=== PATIENT | female | born 1955 | race African-American/Black ===

== ENCOUNTER 2017-11-06 19:28 | Emergency (ER) | payer MEDICAID ==
[~2017-11-06] VITALS: Ht 175.3 cm; Wt 146.8 kg
[~2017-11-06 19:28] MED LIST: ALBU6.7H INH; ASPI-1071 PO; BUPR1FIL3; FURO20TA4; GABA-532; LISI-600 PO; METO25TA6 PO; NIT10P TD; POTA10TA36 PO; RISP2TAB3 PO
[2017-11-06] MEDS ORDERED: diazepam 5mg tablet PO ONE (23:10)
[2017-11-06] MEDS ORDERED: ibuprofen tablet 400 MG TABLET PO ONE (23:10)
[2017-11-06] MEDS ORDERED: DIAZ5TAB PO (23:24)
[2017-11-06] MEDS ORDERED: IBUP-1985 PO (23:24)
[2017-11-06 23:48] VITALS: BP 167/89
== END 2017-11-06 23:49 | disposition home or self-care (01) ==
LOC: ER 19:29
DX: M54.5 Low back pain (principal); M62.830 Muscle spasm of back; R60.0 Localized edema; I25.2 Old myocardial infarction; J44.9 Chronic obstructive pulmonary disease, unspecified; G89.29 Other chronic pain; I11.0 Hypertensive heart disease with heart failure; I50.9 Heart failure, unspecified; M19.90 Unspecified osteoarthritis, unspecified site; F15.10 Other stimulant abuse, uncomplicated; G62.9 Polyneuropathy, unspecified; F11.10 Opioid abuse, uncomplicated; G43.909 Migraine, unspecified, not intractable, without status migrainosus; F12.10 Cannabis abuse, uncomplicated; Z88.1 Allergy status to other antibiotic agents; Z86.711 Personal history of pulmonary embolism; Z86.718 Personal history of other venous thrombosis and embolism; Z88.5 Allergy status to narcotic agent; Z88.8 Allergy status to other drugs, medicaments and biological substances; Z79.1 Long term (current) use of non-steroidal anti-inflammatories (NSAID); Z98.890 Other specified postprocedural states; Z79.82 Long term (current) use of aspirin
CPT/HCPCS: 99283

== ENCOUNTER 2018-01-28 02:23 | Emergency (ER) | payer MEDICAID ==
[~2018-01-28] VITALS: Ht 172.7 cm; Wt 152.3 kg
[~2018-01-28 02:23] MED LIST changes: +DIAZ5TAB PO; +IBUP-1985 PO
[2018-01-28] MEDS ORDERED: methylPREDNISolone sod succ 125mg/2ml vial IV ONE (02:50)
[2018-01-28] MEDS ORDERED: azithromycin/NS 500mg/250ml 250 ML IV ONE (02:50)
[2018-01-28] MEDS ORDERED: ipratropium/albuterol 3ml nebule NEB ONE (02:50)
[2018-01-28 03:12] LABS: BASOPHILS # (AUTO) 0.1 X10'3 (0-0.2); BASOPHILS % (AUTO) 1.2 % (0-1); EOSINOPHILS # (AUTO) 0.1 X10'3 (0-0.9); EOSINOPHILS % (AUTO) 1.3 % (0-6); HEMATOCRIT 40.6 % (35.0-45.0); HEMOGLOBIN 13.6 g/dl (12.0-16.0); LYMPHOCYTES # (AUTO) 2.1 X10'3 (1.1-4.8); LYMPHOCYTES % (AUTO) 35.1 % (21-51); MEAN CORPUSCULAR HEMOGLOBIN 28.9 PG (27.0-31.0); MEAN CORPUSCULAR HGB CONC 33.6 % (33.0-36.5); MEAN CORPUSCULAR VOLUME 86.1 FL (78-98); MEAN PLATELET VOLUME 8.9 FL (7.4-10.4); MONOCYTES # (AUTO) 0.5 X10'3 (0-0.9); MONOCYTES % (AUTO) 7.8 % (2-12); NEUTROPHILS # (AUTO) 3.2 X10'3 (1.8-7.7); NEUTROPHILS % (AUTO) 54.6 % (42-75); PLATELET COUNT 151 X10'3 (140-440); RED BLOOD COUNT 4.72 X10'6 (4.20-5.60); RED CELL DISTRIBUTION WIDTH 14.8 % (11.5-14.5); WHITE BLOOD COUNT 5.9 X10'3 (4.5-11.0)
[2018-01-28 03:21] LABS: INR 1.1 INR; PARTIAL THROMBOPLASTIN TIME 26 SECONDS (22-32); PROTHROMBIN TIME 11.3 SECONDS (9.0-12.0)
[2018-01-28] MEDS ORDERED: methylPREDNISolone sod succ 125mg/2ml vial IM ONE (03:30)
[2018-01-28] MEDS ORDERED: azithromycin 250mg tablet PO ONE (03:30)
[2018-01-28 03:33] LABS: ALANINE AMINOTRANSFERASE 48 U/L (12-78); ALBUMIN 3.1 G/DL (3.4-5.0); ALBUMIN/GLOBULIN RATIO 0.7 (1.1-1.5); ALKALINE PHOSPHATASE 95 IU/L (46-116); ANION GAP 5 (8-16); ASPARTATE AMINO TRANSFERASE 30 U/L (10-37); BILIRUBIN,TOTAL 0.5 MG/DL (0.1-1.0); BLOOD UREA NITROGEN 15 MG/DL (7-18); BUN/CREATININE RATIO 12.9 (6.6-38.0); CALCIUM 9.3 MG/DL (8.5-10.1); CHLORIDE 103 MMOL/L (99-107); CREATININE 1.16 MG/DL (0.40-0.90); GLUCOSE 121 MG/DL (70-104); POTASSIUM 3.9 MMOL/L (3.5-5.1); SODIUM 138 MMOL/L (135-145); TOTAL CARBON DIOXIDE 29.7 MMOL/L (24-32); TOTAL PROTEIN 7.7 G/DL (6.4-8.2); eGFR 57 ML/MIN
[2018-01-28] MEDS ORDERED: PRED20TA PO (04:17)
[2018-01-28 04:35] VITALS: BP 180/71
== END 2018-01-28 04:42 | disposition home or self-care (01) ==
LOC: ER 02:23
DX: J44.9 Chronic obstructive pulmonary disease, unspecified (principal); F15.10 Other stimulant abuse, uncomplicated; I11.0 Hypertensive heart disease with heart failure; I50.9 Heart failure, unspecified; E11.42 Type 2 diabetes mellitus with diabetic polyneuropathy; G43.909 Migraine, unspecified, not intractable, without status migrainosus; M19.90 Unspecified osteoarthritis, unspecified site; I25.2 Old myocardial infarction; F12.10 Cannabis abuse, uncomplicated; Z79.82 Long term (current) use of aspirin; Z88.6 Allergy status to analgesic agent; Z88.1 Allergy status to other antibiotic agents; Z88.0 Allergy status to penicillin; Z88.8 Allergy status to other drugs, medicaments and biological substances
CPT/HCPCS: 36415; 71045; 80053; 83880; 84484; 85025; 85610; 85730; 87040; 93005; 94640; 94760; 96372; 99285; J2930

== ENCOUNTER 2018-03-28 21:21 | Emergency (ER) | payer MEDICAID ==
[~2018-03-28] VITALS: Ht 172.7 cm; Wt 141.8 kg
[2018-03-28] MEDS ORDERED: dexamethasone sod phosphate 10mg/ml inj IV STA (21:48)
[2018-03-28] MEDS ORDERED: metoclopramide 5 mg/ml inj IV ONE (21:50)
[2018-03-28] MEDS ORDERED: normal saline 1000ML IV soln IVB ONE (21:50)
[2018-03-28] MEDS ORDERED: diphenhydrAMINE 50 mg/ml inj IV ONE (21:50)
[2018-03-28] MEDS ORDERED: ketorolac tromethamine 15mg/ml inj. IV ONE (21:50)
[2018-03-28] MEDS ORDERED: SUMA25TA35 PO (22:22)
[2018-03-28] MEDS ORDERED: PROC5TAB56 PO (22:22)
[2018-03-28 22:23] VITALS: BP 190/103
== END 2018-03-29 00:07 | disposition home or self-care (01) ==
LOC: ER 21:21
DX: G43.909 Migraine, unspecified, not intractable, without status migrainosus (principal); H53.149 Visual discomfort, unspecified; G62.9 Polyneuropathy, unspecified; I11.0 Hypertensive heart disease with heart failure; I50.9 Heart failure, unspecified; I25.2 Old myocardial infarction; J44.9 Chronic obstructive pulmonary disease, unspecified; M19.90 Unspecified osteoarthritis, unspecified site; G89.29 Other chronic pain; F12.10 Cannabis abuse, uncomplicated; F15.10 Other stimulant abuse, uncomplicated; F11.10 Opioid abuse, uncomplicated; Z86.718 Personal history of other venous thrombosis and embolism; Z86.14 Personal history of Methicillin resistant Staphylococcus aureus infection; Z98.890 Other specified postprocedural states; Z88.5 Allergy status to narcotic agent; Z88.0 Allergy status to penicillin; Z88.6 Allergy status to analgesic agent; Z86.711 Personal history of pulmonary embolism; Z79.82 Long term (current) use of aspirin; Z88.1 Allergy status to other antibiotic agents
CPT/HCPCS: 96374; 96375; 99284; J1100; J1200; J1885; J2765; J7030

== ENCOUNTER 2018-05-02 01:46 | Emergency (ER) | payer MEDICAID ==
[~2018-05-02 01:46] MED LIST changes: +PROC5TAB56 PO; +SUMA25TA35 PO
== END 2018-05-02 02:23 | disposition left against medical advice (07) ==
LOC: ER 01:47
DX: L08.9 Local infection of the skin and subcutaneous tissue, unspecified (principal); Z53.21 Procedure and treatment not carried out due to patient leaving prior to being seen by health care provider

== ENCOUNTER 2018-06-18 22:01 | Emergency (ER) | payer MEDICAID ==
[~2018-06-18] VITALS: Ht 172.7 cm; Wt 148.2 kg
[2018-06-18 22:08] VITALS: BP 206/120
[2018-06-18] MEDS ORDERED: erythromycin ophthalmic ointment 1gm tube RIGHTEYE ONE (22:40)
[2018-06-18] MEDS ORDERED: SULF1TAB49 PO (22:44)
[2018-06-18] MEDS ORDERED: ERYT1OIN6 RIGHTEYE (22:44)
[2018-06-18] MEDS ORDERED: VIG0.5OS RIGHTEYE (23:19)
== END 2018-06-18 23:26 | disposition home or self-care (01) ==
LOC: ER 22:03
DX: H10.31 Unspecified acute conjunctivitis, right eye (principal); L98.8 Other specified disorders of the skin and subcutaneous tissue; F12.90 Cannabis use, unspecified, uncomplicated; F15.90 Other stimulant use, unspecified, uncomplicated; F11.90 Opioid use, unspecified, uncomplicated; G43.909 Migraine, unspecified, not intractable, without status migrainosus; I11.0 Hypertensive heart disease with heart failure; I50.9 Heart failure, unspecified; I25.2 Old myocardial infarction; J44.9 Chronic obstructive pulmonary disease, unspecified; M19.90 Unspecified osteoarthritis, unspecified site; G62.9 Polyneuropathy, unspecified; G89.29 Other chronic pain; Z86.711 Personal history of pulmonary embolism; Z86.718 Personal history of other venous thrombosis and embolism; Z98.890 Other specified postprocedural states; Z88.5 Allergy status to narcotic agent; Z88.0 Allergy status to penicillin; Z88.1 Allergy status to other antibiotic agents; Z88.6 Allergy status to analgesic agent; Z79.82 Long term (current) use of aspirin; Z79.899 Other long term (current) drug therapy
CPT/HCPCS: 99283

== ENCOUNTER 2018-12-11 06:22 | Emergency (ER) | payer MEDICAID ==
[~2018-12-11] VITALS: Ht 172.7 cm; Wt 127.3 kg
[2018-12-11 07:48] LABS: BASOPHILS % (AUTO) 0.4 % (0-1); EOSINOPHILS % (AUTO) 0.6 % (0-6); HEMATOCRIT 44.1 % (35.0-45.0); HEMOGLOBIN 14.4 g/dl (12.0-16.0); LYMPHOCYTES # (AUTO) 1.4 X10'3 (1.1-4.8); LYMPHOCYTES % (AUTO) 19.2 % (21-51); MEAN CORPUSCULAR HEMOGLOBIN 29.3 PG (27.0-31.0); MEAN CORPUSCULAR HGB CONC 32.7 g/dL (33.0-36.5); MEAN CORPUSCULAR VOLUME 89.7 FL (78-98); MEAN PLATELET VOLUME 9.4 FL (7.4-10.4); MONOCYTES # (AUTO) 0.5 X10'3 (0-0.9); MONOCYTES % (AUTO) 6.8 % (2-12); NEUTROPHILS # (AUTO) 5.5 X10'3 (1.8-7.7); PLATELET COUNT 159 X10'3 (140-440); RED BLOOD COUNT 4.91 X10'6 (4.20-5.60); RED CELL DISTRIBUTION WIDTH 14.6 % (11.5-14.5); WHITE BLOOD COUNT 7.5 X10'3 (4.5-11.0)
[2018-12-11 08:20] LABS: ALANINE AMINOTRANSFERASE 29 U/L (12-78); ALBUMIN 3.1 G/DL (3.4-5.0); ALBUMIN/GLOBULIN RATIO 0.6 (1.1-1.5); ALKALINE PHOSPHATASE 120 IU/L (46-116); ANION GAP 13 (8-16); ASPARTATE AMINO TRANSFERASE 30 U/L (10-37); BILIRUBIN,TOTAL 0.5 MG/DL (0.1-1.0); BLOOD UREA NITROGEN 22 MG/DL (7-18); BUN/CREATININE RATIO 19.3 (6.6-38.0); CALCIUM 9.1 MG/DL (8.5-10.1); CHLORIDE 101 MMOL/L (99-107); CREATININE 1.14 MG/DL (0.40-0.90); GLUCOSE 138 MG/DL (70-104); POTASSIUM 3.4 MMOL/L (3.5-5.1); SODIUM 140 MMOL/L (135-145); TOTAL CARBON DIOXIDE 25.7 MMOL/L (24-32); TOTAL PROTEIN 8.4 G/DL (6.4-8.2); eGFR 58 ML/MIN
[2018-12-11 08:25] LABS: INR 1.1 INR; PROTHROMBIN TIME 11.1 SECONDS (9.0-12.0)
[2018-12-11] MEDS ORDERED: morphine 2 MG/ML inj. syringe IV ONE (08:40)
[2018-12-11] MEDS ORDERED: normal saline 1000ml 1,000 ML IV ONE (08:40)
[2018-12-11] MEDS ORDERED: ondansetron/PF 4mg/2ml inj IV ONE (08:40)
[2018-12-11 09:08] LABS: URINE HCG NEGATIVE (NEG)
[2018-12-11 09:11] LABS: CLARITY,URINE CLEAR (Clear); GLUCOSE, URINE NEGATIVE (Neg); KETONES,URINE NEGATIVE (Neg); LEUKOCYTE ESTERASE ,URINE NEGATIVE (Neg); NITRITES, URINE NEGATIVE (Neg); OCCULT BLOOD,URINE TRACE-LYSED (Neg); PH,URINE 7.5 (4.8-8.0); PROTEIN,URINE 30 mg/dl (Neg); UROBILINOGEN,URINE 0.2 E.U/dL (0.2-1.0)
[2018-12-11 09:13] LABS: COLOR,URINE STRAW (Yellow)
[2018-12-11 09:15] LABS: UA COLLECTION TYPE STRAIGHT CATH
[2018-12-11 09:20] LABS: SQUAMOUS EPITHELIAL CELL,UR NONE SEEN /LPF (FEW)
[2018-12-11 09:22] LABS: RENAL CELLS, URINE FEW /HPF; TRANSITIONAL EPI CELLS,URINE FEW /HPF
[2018-12-11 09:24] LABS: BACTERIA,URINE FEW /HPF (Neg); RBC,URINE 0-2 /HPF (0-2); WBC,URINE 0-4 /HPF (0-4)
[2018-12-11] MEDS ORDERED: morphine 2 MG/ML inj. syringe IM ONE (10:05)
[2018-12-11] MEDS ORDERED: ondansetron 4mg rapidly disintigrating tab PO ONE (10:05)
[2018-12-11] MEDS ORDERED: IBUP-1984 PO (10:12)
[2018-12-11] MEDS ORDERED: ACET-812 PO (10:12)
[2018-12-11] MEDS ORDERED: ONDA4TAB6 PO (10:12)
[2018-12-11 10:20] VITALS: BP 163/100
[2018-12-12] MEDS ORDERED: BISA-155 PO (03:36)
== END 2018-12-11 11:11 | disposition home or self-care (01) ==
LOC: ER 06:23
DX: R31.9 Hematuria, unspecified (principal); R10.31 Right lower quadrant pain; R11.0 Nausea; I50.9 Heart failure, unspecified; I11.0 Hypertensive heart disease with heart failure; I25.2 Old myocardial infarction; J44.9 Chronic obstructive pulmonary disease, unspecified; M19.90 Unspecified osteoarthritis, unspecified site; G89.29 Other chronic pain; F12.90 Cannabis use, unspecified, uncomplicated; F15.90 Other stimulant use, unspecified, uncomplicated; F11.90 Opioid use, unspecified, uncomplicated; F19.90 Other psychoactive substance use, unspecified, uncomplicated; Z86.718 Personal history of other venous thrombosis and embolism; Z86.14 Personal history of Methicillin resistant Staphylococcus aureus infection; Z98.890 Other specified postprocedural states; Z88.5 Allergy status to narcotic agent; Z88.0 Allergy status to penicillin; Z88.2 Allergy status to sulfonamides; Z88.1 Allergy status to other antibiotic agents; Z79.82 Long term (current) use of aspirin; Z79.899 Other long term (current) drug therapy
CPT/HCPCS: 36415; 74176; 80053; 81001; 81025; 85025; 85610; 96372; 99284; J2270; J2405

== ENCOUNTER 2018-12-12 00:34 | Emergency (ER) | payer MEDICAID ==
[~2018-12-12] VITALS: Ht 172.7 cm; Wt 104.4 kg
[~2018-12-12 00:34] MED LIST changes: +ACET-812 PO; +IBUP-1984 PO; +ONDA4TAB6 PO
[2018-12-12] MEDS ORDERED: aspirin 325mg tablet PO ONE (02:45)
[2018-12-12] MEDS ORDERED: ondansetron 4mg rapidly disintigrating tab PO ONE (02:45)
[2018-12-12 03:00] LABS: BASOPHILS % (AUTO) 0.2 % (0-1); EOSINOPHILS # (AUTO) 0.1 X10'3 (0-0.9); EOSINOPHILS % (AUTO) 1.4 % (0-6); HEMATOCRIT 44.1 % (35.0-45.0); HEMOGLOBIN 14.3 g/dl (12.0-16.0); LYMPHOCYTES % (AUTO) 38.8 % (21-51); MEAN CORPUSCULAR HEMOGLOBIN 29.2 PG (27.0-31.0); MEAN CORPUSCULAR HGB CONC 32.4 g/dL (33.0-36.5); MEAN CORPUSCULAR VOLUME 90.1 FL (78-98); MEAN PLATELET VOLUME 9.4 FL (7.4-10.4); MONOCYTES # (AUTO) 0.7 X10'3 (0-0.9); MONOCYTES % (AUTO) 8.3 % (2-12); NEUTROPHILS % (AUTO) 51.3 % (42-75); PLATELET COUNT 161 X10'3 (140-440); RED BLOOD COUNT 4.89 X10'6 (4.20-5.60); RED CELL DISTRIBUTION WIDTH 14.9 % (11.5-14.5); WHITE BLOOD COUNT 7.8 X10'3 (4.5-11.0)
[2018-12-12 03:03] VITALS: BP 122/62
[2018-12-12 03:08] LABS: ALANINE AMINOTRANSFERASE 29 U/L (12-78); ALBUMIN 3.1 G/DL (3.4-5.0); ALBUMIN/GLOBULIN RATIO 0.6 (1.1-1.5); ALKALINE PHOSPHATASE 109 IU/L (46-116); ANION GAP 10 (8-16); ASPARTATE AMINO TRANSFERASE 32 U/L (10-37); BILIRUBIN,TOTAL 0.5 MG/DL (0.1-1.0); BLOOD UREA NITROGEN 22 MG/DL (7-18); BUN/CREATININE RATIO 14.2 (6.6-38.0); CHLORIDE 101 MMOL/L (99-107); CREATININE 1.55 MG/DL (0.40-0.90); GLUCOSE 128 MG/DL (70-104); POTASSIUM 3.9 MMOL/L (3.5-5.1); SODIUM 139 MMOL/L (135-145); TOTAL CARBON DIOXIDE 27.6 MMOL/L (24-32); TOTAL PROTEIN 8.5 G/DL (6.4-8.2); eGFR 41 ML/MIN
[2018-12-12 03:11] LABS: LIPASE 87 U/L (73-393); TROPONIN I 0.06 NG/ML (0.0-0.05)
[2018-12-12] MEDS ORDERED: BISA-155 PO (03:36)
== END 2018-12-12 03:39 | disposition home or self-care (01) ==
LOC: ER 00:35
DX: R10.84 Generalized abdominal pain (principal); R11.0 Nausea; K59.00 Constipation, unspecified; G43.909 Migraine, unspecified, not intractable, without status migrainosus; I11.0 Hypertensive heart disease with heart failure; I50.9 Heart failure, unspecified; I25.2 Old myocardial infarction; Z86.718 Personal history of other venous thrombosis and embolism; J44.9 Chronic obstructive pulmonary disease, unspecified; M19.90 Unspecified osteoarthritis, unspecified site; G89.29 Other chronic pain; Z86.14 Personal history of Methicillin resistant Staphylococcus aureus infection; F12.90 Cannabis use, unspecified, uncomplicated; F15.90 Other stimulant use, unspecified, uncomplicated; F11.90 Opioid use, unspecified, uncomplicated; Z98.890 Other specified postprocedural states; Z88.5 Allergy status to narcotic agent; Z88.0 Allergy status to penicillin; Z88.6 Allergy status to analgesic agent; Z88.2 Allergy status to sulfonamides; Z79.82 Long term (current) use of aspirin; Z79.899 Other long term (current) drug therapy
CPT/HCPCS: 36415; 80053; 83690; 84484; 85025; 93005; 99284

== ENCOUNTER 2019-03-22 13:58 | Inpatient (IN) | payer MEDICAID ==
[~2019-03-22] VITALS: Ht 172.7 cm; Wt 131.8 kg
[~2019-03-22 13:58] MED LIST changes: -ACET-812 PO; +BISA-155 PO; -IBUP-1984 PO
[2019-03-22] MEDS ORDERED: CefTRIAXone 2gm/D5W 50ml 50 ML IV ONE (14:10)
[2019-03-22] MEDS ORDERED: ipratropium/albuterol 3ml nebule NEB ONE (14:10)
--- NOTE | 2019-03-22 14:38 | NUR ---
PT COMPLETED EMT RT AND NOTED TO DROP LOW 79 ON RA, PLACED ON 4 LPM PER N/C AND UP TO 91-93, RT AT BEDSIDE AND TREATMENT IN PROGRESS.
[2019-03-22 14:43] LABS: ALANINE AMINOTRANSFERASE 27 U/L (12-78); ALBUMIN 2.3 G/DL (3.4-5.0); ALBUMIN/GLOBULIN RATIO 0.4 (1.1-1.5); ALKALINE PHOSPHATASE 133 IU/L (46-116); ANION GAP 7 (8-16); ASPARTATE AMINO TRANSFERASE 47 U/L (10-37); BASOPHILS % (AUTO) 0.2 % (0-1); BILIRUBIN,TOTAL 0.9 MG/DL (0.1-1.0); BLOOD UREA NITROGEN 32 MG/DL (7-18); CHLORIDE 100 MMOL/L (99-107); CREATININE 2.29 MG/DL (0.40-0.90); EOSINOPHILS % (AUTO) 0.1 % (0-6); GLUCOSE 129 MG/DL (70-104); HEMATOCRIT 41.3 % (35.0-45.0); HEMOGLOBIN 13.3 g/dl (12.0-16.0); LYMPHOCYTES # (AUTO) 1.2 X10'3 (1.1-4.8); LYMPHOCYTES % (AUTO) 8.5 % (21-51); MEAN CORPUSCULAR HEMOGLOBIN 28.6 PG (27.0-31.0); MEAN CORPUSCULAR HGB CONC 32.1 g/dL (33.0-36.5); MONOCYTES # (AUTO) 1.2 X10'3 (0-0.9); MONOCYTES % (AUTO) 8.5 % (2-12); NEUTROPHILS % (AUTO) 82.7 % (42-75); PLATELET COUNT 192 X10'3 (140-440); POTASSIUM 4.1 MMOL/L (3.5-5.1); RED BLOOD COUNT 4.64 X10'6 (4.20-5.60); RED CELL DISTRIBUTION WIDTH 14.2 % (11.5-14.5); SODIUM 134 MMOL/L (135-145); TOTAL CARBON DIOXIDE 27.3 MMOL/L (24-32); TOTAL PROTEIN 7.7 G/DL (6.4-8.2); WHITE BLOOD COUNT 14.5 X10'3 (4.5-11.0); eGFR 26 ML/MIN
[2019-03-22 14:47] LABS: PARTIAL THROMBOPLASTIN TIME 30 SECONDS (22-32)
[2019-03-22] MEDS ORDERED: aspirin 325mg tablet PO ONE (15:25)
[2019-03-22] MEDS ORDERED: normal saline 1000ML IV soln IVB ONE (15:35)
[2019-03-22] MEDS ORDERED: azithromycin/NS 500mg/250ml 250 ML IV ONE (15:35)
[2019-03-22] MEDS ORDERED: furosemide 10 MG/1 ML 10ml inj IV ONE (15:35)
[2019-03-22 15:56] LABS: ABG BASE EXCESS -3.5 mmol/L (-2.0-3.0); ABG HCO3 23.9 mmol/L (22.0-26.0); ABG OXYGEN SATURATION 89.1 % (95-98); ABG PCO2 (T) 52.3 mmHg (32.0-45.0); ABG PH (T) 7.277 (7.350-7.450); ABG PO2 (T) 62.6 mmHg (83-108); ALLEN'S TEST Positive; FCOHb 1.8 % (0.5-1.5); FLOW 3 L/min; FMetHb 0.2 % (0.3-1.12); FO2Hb 87.3 % (94-100); RESPIRATORY RATE 18 b/min; TOTAL HEMOGLOBIN 14.6 G/dl (12.0-16.0)
[2019-03-22 16:08] LABS: CLARITY,URINE SLIGHTLY CLOUDY (Clear); GLUCOSE, URINE NEGATIVE (Neg); KETONES,URINE TRACE mg/dl (Neg); LEUKOCYTE ESTERASE ,URINE NEGATIVE (Neg); NITRITES, URINE POSITIVE (Neg); OCCULT BLOOD,URINE MODERATE (Neg); PH,URINE 5.5 (4.8-8.0); PROTEIN,URINE >=300 mg/dl (Neg); UROBILINOGEN,URINE >=8.0 E.U/dL (0.2-1.0)
[2019-03-22 16:14] LABS: URINE HCG NEGATIVE (NEG)
[2019-03-22 16:16] LABS: UA COLLECTION TYPE FOLEY CATH
[2019-03-22 16:17] LABS: COLOR,URINE DARK YELLOW (Yellow)
[2019-03-22 16:20] LABS: BACTERIA,URINE 1+ /HPF (Neg); RBC,URINE 0-2 /HPF (0-2)
[2019-03-22 16:21] LABS: FINE GRANULAR CAST 0-3 /LPF (NEGATIVE); SQUAMOUS EPITHELIAL CELL,UR FEW /LPF (FEW); URINE AMPHETAMINE SCREEN POSITIVE (Neg); URINE BARBITUATE SCREEN NEGATIVE (Neg); URINE BENZODIAZEPINES SCREEN NEGATIVE (Neg); URINE CANNABINOID SCREEN NEGATIVE (Neg); URINE COCAINE SCREEN NEGATIVE (Neg); URINE METHADONE SCREEN NEGATIVE (Neg); URINE OPIATE SCREEN POSITIVE (Neg); URINE PHENCYCLIDINE SCREEN NEGATIVE (Neg)
[2019-03-22 16:22] LABS: CELLULAR CAST 0-4 /LPF (NEGATIVE); WAXY CASTS,URINE 0-3 /LPF (NEGATIVE)
[2019-03-22] MEDS ORDERED: GABA-532 PO (16:33)
[2019-03-22] MEDS ORDERED: BUPR1FIL3 SL (16:33)
[2019-03-22] MEDS ORDERED: TRIA454O TOP (16:34)
[2019-03-22] MEDS ORDERED: LISI-600 PO (16:34)
[2019-03-22] MEDS ORDERED: magnesium 4gm in 100ml NS 100 ML IV PRN (16:35)
[2019-03-22] MEDS ORDERED: acetaminophen 325mg tablet PO PRN (16:35)
[2019-03-22] MEDS ORDERED: morphine 2 MG/ML inj. syringe IV PRN ×2 (16:35)
[2019-03-22] MEDS ORDERED: mag hydrox/Alum hydrox/simeth 30ml oral suspension PO PRN (16:35)
[2019-03-22] MEDS ORDERED: potassium Cl 20 mEq SR tablet PO PRN ×2 (16:35)
[2019-03-22] MEDS ORDERED: potassium CL 10mEq/100ml bag 100 ML IV PRN (16:35)
[2019-03-22] MEDS ORDERED: vancomycin/NS 1 GM ADD-VANTAGE 250 ML IV SCH (16:35)
[2019-03-22] MEDS ORDERED: bisacodyl 10mg suppository rectal RC PRN (16:35)
[2019-03-22] MEDS ORDERED: magnesium hydroxide 30ml (MOM) UD suspension PO PRN (16:35)
[2019-03-22] MEDS ORDERED: ondansetron/PF 4mg/2ml inj IV PRN (16:35)
[2019-03-22] MEDS ORDERED: magnesium Cl slow-release 64mg tablet PO PRN (16:35)
[2019-03-22] MEDS ORDERED: RISP4TAB7 PO (16:35)
[2019-03-22] MEDS ORDERED: magnesium 2GM in 50ml NS 50 ML IV PRN (16:35)
[2019-03-22] MEDS ORDERED: potassium Cl 40MEQ/NS 500ml 500 ML IV PRN (16:35)
[2019-03-22] MEDS ORDERED: ESCI20TA PO (16:36)
[2019-03-22] MEDS ORDERED: APIX5TAB3 PO (16:40)
[2019-03-22] MEDS: furosemide 20 MG/2 ML vial IV SCH ×2 (16:45→23:21)
[2019-03-22] MEDS ORDERED: nitroGLYCERIN 0.4mg SUBLingual tab SL PRN (16:45)
[2019-03-22] MEDS: aspirin 81mg tablet.DR PO SCH (16:45)
--- NOTE | 2019-03-22 17:07 | NUR ---
DR. BELL ORDERED BIPAP THEN FOLLOWED BY ABG 2 HOURS AFTER INITIATION OF BIPAP
[2019-03-22] MEDS: pantoprazole 40 MG vial IV SCH (17:23)
[2019-03-22] MEDS: methylPREDNISolone sod succ 125mg/2ml vial IV SCH ×2 (17:23→21:14)
--- NOTE | 2019-03-22 18:37 | NUR ---
Rec'd report from GAETANO Whelan in the ER. The patient will be coming up on Bipap.
[2019-03-22 19:05] LABS: ABG BASE EXCESS -4.8 mmol/L (-2.0-3.0); ABG HCO3 22.8 mmol/L (22.0-26.0); ABG OXYGEN SATURATION 97.2 % (95-98); ABG PCO2 (T) 54.2 mmHg (32.0-45.0); ABG PH (T) 7.247 (7.350-7.450); ABG PO2 (T) 108.9 mmHg (83-108); ALLEN'S TEST Positive; FCOHb 1.3 % (0.5-1.5); FMetHb 0.2 % (0.3-1.12); FO2Hb 95.7 % (94-100); PATIENT TEMPERATURE 37.8; TOTAL HEMOGLOBIN 14.4 G/dl (12.0-16.0)
--- NOTE | 2019-03-22 19:15 | NUR ---
Patient arrived from ER on a gurney and was transferred to hospital bed w/o issue using a slide board. She is extremely SOB and will continue on Bipap, I will continue to monitor.
[2019-03-22] MEDS: ipratropium/albuterol 3ml nebule NEB SCH ×2 (19:17→22:52)
[2019-03-22 19:30] VITALS: BP 161/103
[2019-03-22] MEDS: NORMAL SALINE IV SCH (19:46)
[2019-03-22] MEDS: VANCOMYCIN IV SCH (19:46)
[2019-03-22] MEDS ORDERED: metoprolol tartrate 12.5mg (1/2 tablet) PO SCH (20:00)
[2019-03-22] MEDS ORDERED: heparin, porcine 5000 units/ml vial SQ SCH (20:00)
[2019-03-22] MEDS ORDERED: RISPERIDONE PO SCH (20:00)
--- NOTE | 2019-03-22 20:19 | NUR ---
Patient refused blood draw and was screaming at the community service worker that she wanted water. She also ripped her hand away when another nurse tried to put blood pressure cuff back on. I advised the staff I would talk to her about her behavior.
[2019-03-22] MEDS ORDERED: non-formulary drug (Buprenorphine Hcl/Naloxone Hcl (Suboxone 8 Mg-2 Mg Sl Film) 1 STRIP) SL SCH (21:00)
[2019-03-22] MEDS: buprenorphine/naloxone 8MG-2MG SUBlingual film SL SCH (21:12)
[2019-03-22] MEDS: gabapentin 300mg capsule PO SCH (21:13)
[2019-03-22] MEDS: risperiDONE 2mg tablet PO SCH (21:13)
[2019-03-22] MEDS: apixaban 5mg tablet PO SCH (21:13)
[2019-03-22] MEDS: docusate sod 100mg capsule PO SCH (21:13)
[2019-03-22 22:00] VITALS: BP 167/86
[2019-03-23 02:00] VITALS: BP 145/75
[2019-03-23] MEDS: methylPREDNISolone sod succ 125mg/2ml vial IV SCH ×3 (02:26→13:37)
[2019-03-23] MEDS: ipratropium/albuterol 3ml nebule NEB SCH ×6 (02:38→23:25)
[2019-03-23 06:00] VITALS: BP 124/68
[2019-03-23 06:03] LABS: HEMOGLOBIN 12.8 g/dl (12.0-16.0); MEAN PLATELET VOLUME 8.9 FL (7.4-10.4)
[2019-03-23 06:06] LABS: HEMATOCRIT 40.1 % (35.0-45.0); MEAN CORPUSCULAR HEMOGLOBIN 28.5 PG (27.0-31.0); MEAN CORPUSCULAR HGB CONC 32.1 g/dL (33.0-36.5); PLATELET COUNT 167 X10'3 (140-440); RED CELL DISTRIBUTION WIDTH 13.8 % (11.5-14.5); WHITE BLOOD COUNT 15.7 X10'3 (4.5-11.0)
--- NOTE | 2019-03-23 06:15 | NUR ---
Problems reprioritized. Patient report given, questions answered & plan of care reviewed with GAETANO Chavez.
--- NOTE | 2019-03-23 06:15 | NUR ---
Patient in room PCU 3022. I have received report from Luanne SALTER and had the opportunity to ask questions and assume patient care.
[2019-03-23 06:42] LABS: ALANINE AMINOTRANSFERASE 21 U/L (12-78); ALBUMIN 1.8 G/DL (3.4-5.0); ALBUMIN/GLOBULIN RATIO 0.3 (1.1-1.5); ALKALINE PHOSPHATASE 117 IU/L (46-116); ANION GAP 12 (8-16); ASPARTATE AMINO TRANSFERASE 40 U/L (10-37); BILIRUBIN,TOTAL 0.7 MG/DL (0.1-1.0); BLOOD UREA NITROGEN 34 MG/DL (7-18); BUN/CREATININE RATIO 18.8 (6.6-38.0); CALCIUM 8.4 MG/DL (8.5-10.1); CHLORIDE 103 MMOL/L (99-107); CHOL/HDL RATIO 5.5 (0.00-4.99); CHOLESTEROL 133 MG/DL (0-200); CREATININE 1.81 MG/DL (0.40-0.90); GLUCOSE 150 MG/DL (70-104); HDL CHOLESTEROL 24 MG/DL (35-60); LDL CHOLESTEROL 75 MG/DL (50-100); MAGNESIUM 1.8 MG/DL (1.5-2.4); POTASSIUM 3.9 MMOL/L (3.5-5.1); SODIUM 135 MMOL/L (135-145); TOTAL CARBON DIOXIDE 20.1 MMOL/L (24-32); TRIGLYCERIDES 100 MG/DL (20-135); TROPONIN I 0.15 NG/ML (0.0-0.05); eGFR 34 ML/MIN
[2019-03-23] MEDS: VANCOMYCIN IV SCH (07:16)
[2019-03-23] MEDS: NORMAL SALINE IV SCH (07:16)
[2019-03-23 07:21] LABS: PLATELET ESTIMATE NORMAL; TOTAL CELLS COUNTED 100
[2019-03-23 07:22] LABS: LARGE PLATELETS FEW
[2019-03-23] MEDS: K and/or MAG REPLACEMENT MC SCH (08:00)
[2019-03-23] MEDS: gabapentin 300mg capsule PO SCH ×3 (08:00→20:47)
[2019-03-23] MEDS: risperiDONE 2mg tablet PO SCH ×2 (08:00→20:47)
[2019-03-23] MEDS: citalopram 20mg tablet PO SCH (08:00)
[2019-03-23] MEDS: buprenorphine/naloxone 8MG-2MG SUBlingual film SL SCH ×3 (08:00→20:48)
[2019-03-23] MEDS: nicotine 7mg patch - 24hr TD SCH ×2 (08:00→14:15)
[2019-03-23] MEDS: docusate sod 100mg capsule PO SCH ×2 (08:00→20:00)
[2019-03-23] MEDS: aspirin 81mg tablet.DR PO SCH (08:00)
[2019-03-23] MEDS ORDERED: escitalopram 20mg tablet PO SCH (08:00)
[2019-03-23] MEDS: apixaban 5mg tablet PO SCH ×2 (08:00→20:47)
[2019-03-23] MEDS: pantoprazole 40 MG vial IV SCH (08:46)
[2019-03-23] MEDS: furosemide 20 MG/2 ML vial IV SCH ×2 (08:47→17:09)
[2019-03-23] MEDS: CefTRIAXone/D5W-Rocephin 1gm 50 ML IV SCH (08:52)
--- NOTE | 2019-03-23 09:20 | NUR ---
Pt unable to take Morning PO meds. DR. Kramer aware. IV metoprolol 2.5mg q4hrs prescribed for BP.
[2019-03-23 09:31] LABS: ABG BASE EXCESS -1.1 mmol/L (-2.0-3.0); ABG HCO3 25.4 mmol/L (22.0-26.0); ABG OXYGEN SATURATION 92.9 % (95-98); ABG PCO2 (T) 49.4 mmHg (32.0-45.0); ABG PH (T) 7.329 (7.350-7.450); ABG PO2 (T) 71.9 mmHg (83-108); ALLEN'S TEST Positive; FCOHb 0.4 % (0.5-1.5); FLOW 3 L/min; FMetHb 0.1 % (0.3-1.12); FO2Hb 92.4 % (94-100); TOTAL HEMOGLOBIN 13.5 G/dl (12.0-16.0)
[2019-03-23] MEDS: metoprolol tartrate 1mg/ml inj IV SCH ×3 (12:06→20:47)
[2019-03-23 15:15] VITALS: BP 131/61
--- NOTE | 2019-03-23 15:36 | NUR ---
PAGER ID: [phone] MESSAGE: RE: Jos Austin, room: 3022. Pt back on Bipap. reorder ABG? -Scott [facility] #[id number] Dr. Kramer paged about Pt going back on bipap
--- NOTE | 2019-03-23 17:49 | NUR ---
PAGER ID: [phone] MESSAGE: RE: Jos Austin. Room: 3022. Checked Pts blood sugar at 1500: 183 and again at 1700: 154. No history of Diabetes. Do you want an A1C drawn? -Scott Padma Kramer paged aoncerning Pts blood sugars with no history of Diabetes.
--- NOTE | 2019-03-23 18:05 | NUR ---
Problems reprioritized. Patient report given, questions answered & plan of care reviewed with Marya SALTER.
[2019-03-23 19:00] VITALS: BP 145/70
[2019-03-23] MEDS: lactobacillus rhamnosus 10,000 MMU CELLS/CAPSULE PO SCH (20:47)
--- NOTE | 2019-03-23 21:22 | NUR ---
Patient in room PCU 3022. I have received report from Marya SALTER and had the opportunity to ask questions and assume patient care.
[2019-03-23 21:48] VITALS: BP 145/70
[2019-03-23 23:00] VITALS: BP 138/59
[2019-03-24] MEDS: metoprolol tartrate 1mg/ml inj IV SCH ×6 (00:43→20:48)
[2019-03-24] MEDS: furosemide 20 MG/2 ML vial IV SCH ×3 (00:43→16:45)
[2019-03-24] MEDS: methylPREDNISolone sod succ 125mg/2ml vial IV SCH ×3 (00:44→16:45)
[2019-03-24 03:00] VITALS: BP 151/78
[2019-03-24] MEDS: ipratropium/albuterol 3ml nebule NEB SCH ×6 (03:08→23:28)
--- NOTE | 2019-03-24 05:13 | NUR ---
Butts catheter removed
[2019-03-24 06:00] VITALS: BP 155/76
[2019-03-24 06:02] LABS: BASOPHILS % (AUTO) 0.1 % (0-1); EOSINOPHILS % (AUTO) 0 % (0-6); HEMATOCRIT 38.4 % (35.0-45.0); HEMOGLOBIN 12.7 g/dl (12.0-16.0); LYMPHOCYTES # (AUTO) 0.8 X10'3 (1.1-4.8); LYMPHOCYTES % (AUTO) 4.4 % (21-51); MEAN CORPUSCULAR VOLUME 87.8 FL (78-98); MEAN PLATELET VOLUME 9.1 FL (7.4-10.4); MONOCYTES # (AUTO) 0.7 X10'3 (0-0.9); MONOCYTES % (AUTO) 4.1 % (2-12); NEUTROPHILS # (AUTO) 16.8 X10'3 (1.8-7.7); NEUTROPHILS % (AUTO) 91.4 % (42-75); PLATELET COUNT 163 X10'3 (140-440); RED BLOOD COUNT 4.37 X10'6 (4.20-5.60); RED CELL DISTRIBUTION WIDTH 14.2 % (11.5-14.5); WHITE BLOOD COUNT 18.4 X10'3 (4.5-11.0)
[2019-03-24 07:13] LABS: ALANINE AMINOTRANSFERASE 20 U/L (12-78); ALBUMIN 1.7 G/DL (3.4-5.0); ALBUMIN/GLOBULIN RATIO 0.3 (1.1-1.5); ALKALINE PHOSPHATASE 119 IU/L (46-116); ANION GAP 8 (8-16); ASPARTATE AMINO TRANSFERASE 32 U/L (10-37); BILIRUBIN,TOTAL 0.4 MG/DL (0.1-1.0); BLOOD UREA NITROGEN 36 MG/DL (7-18); BUN/CREATININE RATIO 21.4 (6.6-38.0); CALCIUM 8.9 MG/DL (8.5-10.1); CHLORIDE 103 MMOL/L (99-107); CREATININE 1.68 MG/DL (0.40-0.90); GLUCOSE 165 MG/DL (70-104); MAGNESIUM 1.8 MG/DL (1.5-2.4); POTASSIUM 3.5 MMOL/L (3.5-5.1); SODIUM 136 MMOL/L (135-145); TOTAL CARBON DIOXIDE 25.4 MMOL/L (24-32); TOTAL PROTEIN 6.9 G/DL (6.4-8.2); eGFR 37 ML/MIN
[2019-03-24] MEDS: VANCOMYCIN IV SCH (07:50)
[2019-03-24] MEDS: NORMAL SALINE IV SCH (07:50)
[2019-03-24] MEDS: apixaban 5mg tablet PO SCH ×2 (07:51→20:46)
[2019-03-24] MEDS: CefTRIAXone/D5W-Rocephin 1gm 50 ML IV SCH (07:51)
[2019-03-24] MEDS: pantoprazole 40 MG vial IV SCH (07:51)
[2019-03-24] MEDS: citalopram 20mg tablet PO SCH (07:52)
[2019-03-24] MEDS: gabapentin 300mg capsule PO SCH ×2 (07:52→20:46)
[2019-03-24] MEDS: lactobacillus rhamnosus 10,000 MMU CELLS/CAPSULE PO SCH ×2 (07:52→20:48)
[2019-03-24] MEDS: aspirin 81mg tablet.DR PO SCH (07:53)
[2019-03-24] MEDS: risperiDONE 2mg tablet PO SCH ×2 (07:53→20:47)
[2019-03-24] MEDS: docusate sod 100mg capsule PO SCH ×2 (07:53→20:00)
[2019-03-24] MEDS: buprenorphine/naloxone 8MG-2MG SUBlingual film SL SCH ×3 (07:54→20:48)
[2019-03-24 07:59] LABS: HEMOGLOBIN A1C 6.6 % (4.5-6.2)
[2019-03-24] MEDS: nicotine 7mg patch - 24hr TD SCH (08:00)
[2019-03-24] MEDS: K and/or MAG REPLACEMENT MC SCH (08:00)
[2019-03-24 10:54] LABS: PLATELET ESTIMATE NORMAL; TOTAL CELLS COUNTED 100
[2019-03-24 11:00] VITALS: BP 138/49
--- NOTE | 2019-03-24 13:48 | NUR ---
1300 Suboxone held due to pt being unable to arouse enough to take medication.
[2019-03-24 15:15] VITALS: BP 174/84
[2019-03-24 18:00] VITALS: BP 160/61
--- NOTE | 2019-03-24 18:14 | NUR ---
Problems reprioritized. Patient report given, questions answered & plan of care reviewed with Meli SALTER.
--- NOTE | 2019-03-24 18:18 | NUR ---
Patient in room PCU 3022. I have received report from Farrukh SALTER and had the opportunity to ask questions and assume patient care. pt is eating dinner, SL. O2 @2L
[2019-03-24] MEDS: HYDROcodone/acetaminophen 5mg/325mg tablet PO PRN (21:07)
[2019-03-24 23:00] VITALS: BP 166/96
[2019-03-25] VITALS (10 sets, daily range): BP systolic 154–194; BP diastolic 59–95
[2019-03-25] MEDS: methylPREDNISolone sod succ 125mg/2ml vial IV SCH ×2 (00:17→08:25)
[2019-03-25] MEDS: furosemide 20 MG/2 ML vial IV SCH ×4 (00:18→23:36)
[2019-03-25] MEDS: metoprolol tartrate 1mg/ml inj IV SCH ×4 (00:19→11:39)
--- NOTE | 2019-03-25 00:49 | NUR ---
pt refused to wear bipap, only want to wear nasal canula, O2 at 91%, 2L
--- NOTE | 2019-03-25 02:18 | NUR ---
[phone] MESSAGE: pt rick Austinl 3022, pt admitted with SOB, pneumonia, COPD, ALOC, pt is not very responsive and hard to arouse. pt refused to wear cpap at night. Do you want to do an ABG on pt. Thanks, Meli RN [phone]!
[2019-03-25 02:51] LABS: ABG BASE EXCESS 3.6 mmol/L (-2.0-3.0); ABG HCO3 29.5 mmol/L (22.0-26.0); ABG OXYGEN SATURATION 94.9 % (95-98); ABG PCO2 (T) 49.8 mmHg (32.0-45.0); ABG PO2 (T) 77.3 mmHg (83-108); ALLEN'S TEST Positive; FCOHb 0.2 % (0.5-1.5); FMetHb 0.3 % (0.3-1.12); FO2Hb 94.4 % (94-100); MINUTE VOLUME 12 L/min; RESPIRATORY RATE 20 b/min; RESPIRATORY RATE (OBSERVED) 24 b/min; TOTAL HEMOGLOBIN 13.7 G/dl (12.0-16.0)
[2019-03-25] MEDS: ipratropium/albuterol 3ml nebule NEB SCH ×6 (04:01→23:41)
[2019-03-25] MEDS: HYDROcodone/acetaminophen 5mg/325mg tablet PO PRN ×2 (04:41→13:44)
[2019-03-25 05:59] LABS: BASOPHILS # (AUTO) 0.1 X10'3 (0-0.2); BASOPHILS % (AUTO) 0.7 % (0-1); EOSINOPHILS % (AUTO) 0 % (0-6); HEMATOCRIT 39.6 % (35.0-45.0); HEMOGLOBIN 12.7 g/dl (12.0-16.0); LYMPHOCYTES # (AUTO) 0.7 X10'3 (1.1-4.8); LYMPHOCYTES % (AUTO) 3.9 % (21-51); MEAN CORPUSCULAR HEMOGLOBIN 28.2 PG (27.0-31.0); MEAN CORPUSCULAR HGB CONC 31.9 g/dL (33.0-36.5); MEAN CORPUSCULAR VOLUME 88.2 FL (78-98); MEAN PLATELET VOLUME 9.2 FL (7.4-10.4); MONOCYTES # (AUTO) 0.8 X10'3 (0-0.9); MONOCYTES % (AUTO) 4.2 % (2-12); NEUTROPHILS # (AUTO) 16.4 X10'3 (1.8-7.7); NEUTROPHILS % (AUTO) 91.2 % (42-75); PLATELET COUNT 191 X10'3 (140-440); RED BLOOD COUNT 4.49 X10'6 (4.20-5.60); RED CELL DISTRIBUTION WIDTH 14.1 % (11.5-14.5)
--- NOTE | 2019-03-25 06:01 | NUR ---
found multiple wounds on pt, unclear if present on admission, found another cellulitis on Left foot, skin laceration on left buttock, multple open wound on vagina and thigh area. pictures are taken and in the chart
[2019-03-25 06:23] LABS: ALANINE AMINOTRANSFERASE 28 U/L (12-78); ALBUMIN 1.7 G/DL (3.4-5.0); ALBUMIN/GLOBULIN RATIO 0.3 (1.1-1.5); ALKALINE PHOSPHATASE 113 IU/L (46-116); ANION GAP 8 (8-16); ASPARTATE AMINO TRANSFERASE 25 U/L (10-37); BILIRUBIN,TOTAL 0.3 MG/DL (0.1-1.0); BLOOD UREA NITROGEN 40 MG/DL (7-18); BUN/CREATININE RATIO 26.7 (6.6-38.0); CALCIUM 9.2 MG/DL (8.5-10.1); CHLORIDE 104 MMOL/L (99-107); GLUCOSE 170 MG/DL (70-104); MAGNESIUM 1.8 MG/DL (1.5-2.4); POTASSIUM 3.5 MMOL/L (3.5-5.1); SODIUM 138 MMOL/L (135-145); TOTAL CARBON DIOXIDE 26.4 MMOL/L (24-32); eGFR 42 ML/MIN
--- NOTE | 2019-03-25 06:40 | NUR ---
Patient in room PCU 3022. I have received report from Meli SALTER and had the opportunity to ask questions and assume patient care.
--- NOTE | 2019-03-25 06:46 | NUR ---
Problems reprioritized. Patient report given, questions answered & plan of care reviewed with Ivelisse SALTER.
[2019-03-25 07:21] LABS: TOTAL CELLS COUNTED 100
[2019-03-25 07:22] LABS: PLATELET ESTIMATE NORMAL; POIKILOCYTOSIS 1+; TOXIC GRANULATION 3+; TOXIC VACUOLATION 1+
[2019-03-25] MEDS: K and/or MAG REPLACEMENT MC SCH (08:00)
[2019-03-25] MEDS: docusate sod 100mg capsule PO SCH ×2 (08:00→19:05)
[2019-03-25] MEDS: nicotine 7mg patch - 24hr TD SCH (08:00)
[2019-03-25] MEDS: pantoprazole 40mg Tablet.DR PO SCH (08:24)
[2019-03-25] MEDS: CefTRIAXone/D5W-Rocephin 1gm 50 ML IV SCH (08:25)
[2019-03-25] MEDS: citalopram 20mg tablet PO SCH (08:25)
[2019-03-25] MEDS: apixaban 5mg tablet PO SCH ×2 (08:26→19:05)
[2019-03-25] MEDS: gabapentin 300mg capsule PO SCH ×2 (08:26→19:05)
[2019-03-25] MEDS: risperiDONE 2mg tablet PO SCH ×2 (08:26→19:09)
[2019-03-25] MEDS: buprenorphine/naloxone 8MG-2MG SUBlingual film SL SCH ×3 (08:26→21:15)
[2019-03-25] MEDS: lactobacillus rhamnosus 10,000 MMU CELLS/CAPSULE PO SCH ×2 (08:26→19:04)
[2019-03-25] MEDS: aspirin 81mg tablet.DR PO SCH (08:26)
[2019-03-25] MEDS: VANCOMYCIN IV SCH (09:30)
[2019-03-25] MEDS: NORMAL SALINE IV SCH (09:30)
--- NOTE | 2019-03-25 11:50 | NUR ---
PAGER ID: [phone] MESSAGE: Dr. Kramer, Re: Ms. Austin in 3022A, BP was 194/90 at 11:20, pt given 2.5 mg IV Lopressor (due at 12:00). Please advise if you would anything else to be given. Thank you Ivelisse on tele #[phone]
--- NOTE | 2019-03-25 13:18 | NUR ---
PAGER ID: [phone] MESSAGE: Dr. Kramer, Re: Ms. Austin in 3022A, BP still 173/92, please advise, thank you Ivelisse #[phone], or #[phone]
[2019-03-25] MEDS ORDERED: amLODIPine 5mg tablet PO ONE (13:25)
--- NOTE | 2019-03-25 13:25 | NUR ---
Spoke with , discussed pt's medications, entered new orders for a one time dose 5 mg Norvasc PO and 10 mg hydralazine IV Q4 for SBP above 150
[2019-03-25] MEDS: hydrALAZINE 20mg/ml inj. IV PRN (14:54)
--- NOTE | 2019-03-25 18:13 | NUR ---
Problems reprioritized. Patient report given, questions answered & plan of care reviewed with Tanesha Renteria RN.
--- NOTE | 2019-03-25 18:15 | NUR ---
Patient in room PCU 3022. I have received report from GAETANO Oviedo and had the opportunity to ask questions and assume patient care.
[2019-03-25] MEDS: metoprolol tartrate 12.5mg (1/2 tablet) PO SCH (19:05)
[2019-03-26] VITALS (8 sets, daily range): BP systolic 91–170; BP diastolic 56–81
[2019-03-26] MEDS: ipratropium/albuterol 3ml nebule NEB SCH ×6 (03:12→23:05)
--- NOTE | 2019-03-26 06:10 | NUR ---
Patient in room PCU 3022. I have received report from RADHA SALTER and had the opportunity to ask questions and assume patient care.
[2019-03-26] MEDS ORDERED: VANCOMYCIN LEVEL IV ONE (06:30)
--- NOTE | 2019-03-26 06:30 | NUR ---
Problems reprioritized. Patient report given, questions answered & plan of care reviewed with GAETANO Gibbs.
[2019-03-26] MEDS ORDERED: VANCOMYCIN 1,500MG inj. 1,500 MG in normal saline 250ml IV soln 280 ML IV SCH ×2 (07:00→19:00)
[2019-03-26 07:09] LABS: BASOPHILS % (AUTO) 0.2 % (0-1); EOSINOPHILS % (AUTO) 0 % (0-6); HEMATOCRIT 40.4 % (35.0-45.0); HEMOGLOBIN 13.1 g/dl (12.0-16.0); LYMPHOCYTES # (AUTO) 1.4 X10'3 (1.1-4.8); LYMPHOCYTES % (AUTO) 8.6 % (21-51); MEAN CORPUSCULAR HEMOGLOBIN 28.2 PG (27.0-31.0); MEAN CORPUSCULAR HGB CONC 32.4 g/dL (33.0-36.5); MEAN CORPUSCULAR VOLUME 87.1 FL (78-98); MEAN PLATELET VOLUME 9.1 FL (7.4-10.4); MONOCYTES # (AUTO) 1.2 X10'3 (0-0.9); MONOCYTES % (AUTO) 7.3 % (2-12); NEUTROPHILS # (AUTO) 13.3 X10'3 (1.8-7.7); NEUTROPHILS % (AUTO) 83.9 % (42-75); PLATELET COUNT 208 X10'3 (140-440); RED BLOOD COUNT 4.63 X10'6 (4.20-5.60); RED CELL DISTRIBUTION WIDTH 14.3 % (11.5-14.5); WHITE BLOOD COUNT 15.9 X10'3 (4.5-11.0)
[2019-03-26] MEDS: hydrALAZINE 20mg/ml inj. IV PRN ×2 (07:42→15:32)
[2019-03-26 07:55] LABS: ANISOCYTOSIS 1+; PLATELET ESTIMATE NORMAL; POIKILOCYTOSIS 1+; TOTAL CELLS COUNTED 100; TOXIC GRANULATION 1+; TOXIC VACUOLATION 1+
[2019-03-26] MEDS: amLODIPine 5mg tablet PO SCH (07:56)
[2019-03-26] MEDS: gabapentin 300mg capsule PO SCH ×2 (07:56→20:02)
[2019-03-26] MEDS: aspirin 81mg tablet.DR PO SCH (07:56)
[2019-03-26] MEDS: citalopram 20mg tablet PO SCH (07:56)
[2019-03-26] MEDS: buprenorphine/naloxone 8MG-2MG SUBlingual film SL SCH ×3 (07:56→20:03)
[2019-03-26] MEDS: docusate sod 100mg capsule PO SCH ×2 (07:56→20:02)
[2019-03-26] MEDS: apixaban 5mg tablet PO SCH ×2 (07:56→20:02)
[2019-03-26] MEDS: furosemide 20 MG/2 ML vial IV SCH ×3 (07:57→23:49)
[2019-03-26] MEDS: pantoprazole 40mg Tablet.DR PO SCH (07:58)
[2019-03-26] MEDS: metoprolol tartrate 12.5mg (1/2 tablet) PO SCH ×2 (07:59→20:03)
[2019-03-26] MEDS: nicotine 7mg patch - 24hr TD SCH (07:59)
[2019-03-26] MEDS: K and/or MAG REPLACEMENT MC SCH (08:00)
[2019-03-26] MEDS: predniSONE 20 mg tablet PO SCH (08:01)
[2019-03-26] MEDS: lactobacillus rhamnosus 10,000 MMU CELLS/CAPSULE PO SCH ×2 (08:01→20:02)
[2019-03-26] MEDS: risperiDONE 2mg tablet PO SCH ×2 (08:01→20:03)
[2019-03-26 08:21] LABS: ALANINE AMINOTRANSFERASE 27 U/L (12-78); ALBUMIN 1.6 G/DL (3.4-5.0); ALBUMIN/GLOBULIN RATIO 0.3 (1.1-1.5); ALKALINE PHOSPHATASE 99 IU/L (46-116); ANION GAP 7 (8-16); ASPARTATE AMINO TRANSFERASE 17 U/L (10-37); BILIRUBIN,TOTAL 0.2 MG/DL (0.1-1.0); BLOOD UREA NITROGEN 33 MG/DL (7-18); BUN/CREATININE RATIO 28.7 (6.6-38.0); CALCIUM 9.1 MG/DL (8.5-10.1); CHLORIDE 105 MMOL/L (99-107); CREATININE 1.15 MG/DL (0.40-0.90); GLUCOSE 103 MG/DL (70-104); MAGNESIUM 1.7 MG/DL (1.5-2.4); POTASSIUM 3.2 MMOL/L (3.5-5.1); SODIUM 142 MMOL/L (135-145); TOTAL CARBON DIOXIDE 30.1 MMOL/L (24-32); TOTAL PROTEIN 6.8 G/DL (6.4-8.2); VANCOMYCIN,TROUGH 14.4 UG/ML (6.0-14.0); eGFR 58 ML/MIN
[2019-03-26] MEDS ORDERED: potassium Cl 20 mEq SR tablet PO PRN (09:40)
[2019-03-26] MEDS ORDERED: potassium CL 10mEq/100ml bag 100 ML IV PRN (09:40)
[2019-03-26] MEDS: potassium Cl 20 mEq SR tablet PO PRN ×3 (09:57→20:02)
[2019-03-26] MEDS: CefTRIAXone/D5W-Rocephin 1gm 50 ML IV SCH (09:57)
--- NOTE | 2019-03-26 14:30 | NUR ---
NOTIFIED BY PHYSICAL THERAPIST THAT PATIENT MENTIONED TO HER THAT SHE THOUGHT SHE HAD A STROKE. F/U WITH PATIENT SHE STATES SHE THINKS SHE HAD A STROKE D/T SHE CANT WALK AND SHE FELT HER SPEECH IS SLURRED. EQUAL STRENGTH IN ALL EXTREMITIES, NO FACIAL DROOP, SPEECH SOUNDS THE SAME THIS MORNING. WILL NOTIFY
[2019-03-26] MEDS: HYDROcodone/acetaminophen 5mg/325mg tablet PO PRN ×2 (15:31→20:02)
--- NOTE | 2019-03-26 15:39 | NUR ---
PAGER ID: [phone] MESSAGE: MIGUEL ÁNGELBAILEE [phone] RE: MOISE 4022, PT TOLD PHYSICAL THERAPY SHE THOUGHT SHE HAD A STROKE. NO FACIAL DROOP, SPEECH IS THE SAME, EQUAL STRENGTH ON ALL EXTREMITIES.
--- NOTE | 2019-03-26 18:10 | NUR ---
Problems reprioritized. Patient report given, questions answered & plan of care reviewed with MILLER SALTER.
[2019-03-27 02:00] VITALS: BP 139/60
[2019-03-27] MEDS: ipratropium/albuterol 3ml nebule NEB SCH ×6 (02:58→22:56)
[2019-03-27 05:24] LABS: BASOPHILS # (AUTO) 0.1 X10'3 (0-0.2); BASOPHILS % (AUTO) 0.4 % (0-1); EOSINOPHILS % (AUTO) 0.1 % (0-6); HEMATOCRIT 38.6 % (35.0-45.0); HEMOGLOBIN 12.6 g/dl (12.0-16.0); LYMPHOCYTES # (AUTO) 1.8 X10'3 (1.1-4.8); LYMPHOCYTES % (AUTO) 10.9 % (21-51); MEAN CORPUSCULAR HEMOGLOBIN 28.5 PG (27.0-31.0); MEAN CORPUSCULAR HGB CONC 32.6 g/dL (33.0-36.5); MEAN CORPUSCULAR VOLUME 87.5 FL (78-98); MEAN PLATELET VOLUME 8.7 FL (7.4-10.4); MONOCYTES # (AUTO) 1.1 X10'3 (0-0.9); MONOCYTES % (AUTO) 6.9 % (2-12); NEUTROPHILS # (AUTO) 13.2 X10'3 (1.8-7.7); NEUTROPHILS % (AUTO) 81.7 % (42-75); PLATELET COUNT 236 X10'3 (140-440); RED BLOOD COUNT 4.41 X10'6 (4.20-5.60); RED CELL DISTRIBUTION WIDTH 14.3 % (11.5-14.5); WHITE BLOOD COUNT 16.2 X10'3 (4.5-11.0)
[2019-03-27 06:05] LABS: ALANINE AMINOTRANSFERASE 26 U/L (12-78); ALBUMIN 1.6 G/DL (3.4-5.0); ALBUMIN/GLOBULIN RATIO 0.3 (1.1-1.5); ALKALINE PHOSPHATASE 95 IU/L (46-116); ANION GAP 5 (8-16); ASPARTATE AMINO TRANSFERASE 22 U/L (10-37); BILIRUBIN,TOTAL 0.2 MG/DL (0.1-1.0); BLOOD UREA NITROGEN 29 MG/DL (7-18); BUN/CREATININE RATIO 26.9 (6.6-38.0); CALCIUM 8.8 MG/DL (8.5-10.1); CHLORIDE 105 MMOL/L (99-107); CREATININE 1.08 MG/DL (0.40-0.90); GLUCOSE 100 MG/DL (70-104); MAGNESIUM 1.7 MG/DL (1.5-2.4); POTASSIUM 3.7 MMOL/L (3.5-5.1); SODIUM 142 MMOL/L (135-145); TOTAL CARBON DIOXIDE 31.9 MMOL/L (24-32); TOTAL PROTEIN 6.7 G/DL (6.4-8.2); eGFR 62 ML/MIN
[2019-03-27 06:48] VITALS: BP 153/62
[2019-03-27 07:19] LABS: ANISOCYTOSIS 1+; PLATELET ESTIMATE NORMAL; TOTAL CELLS COUNTED 100
[2019-03-27 07:20] LABS: POIKILOCYTOSIS FEW; TOXIC GRANULATION 1+; TOXIC VACUOLATION 1+
[2019-03-27] MEDS: docusate sod 100mg capsule PO SCH ×2 (07:58→20:00)
[2019-03-27] MEDS: nicotine 7mg patch - 24hr TD SCH (07:58)
[2019-03-27] MEDS: predniSONE 20 mg tablet PO SCH (07:59)
[2019-03-27] MEDS: buprenorphine/naloxone 8MG-2MG SUBlingual film SL SCH ×3 (07:59→20:14)
[2019-03-27] MEDS: risperiDONE 2mg tablet PO SCH ×2 (07:59→20:13)
[2019-03-27] MEDS: lactobacillus rhamnosus 10,000 MMU CELLS/CAPSULE PO SCH ×2 (07:59→20:13)
[2019-03-27] MEDS: metoprolol tartrate 12.5mg (1/2 tablet) PO SCH ×2 (07:59→20:13)
[2019-03-27] MEDS: pantoprazole 40mg Tablet.DR PO SCH (08:00)
[2019-03-27] MEDS: apixaban 5mg tablet PO SCH ×2 (08:00→20:13)
[2019-03-27] MEDS: gabapentin 300mg capsule PO SCH ×2 (08:00→20:12)
[2019-03-27] MEDS: aspirin 81mg tablet.DR PO SCH (08:00)
[2019-03-27] MEDS: amLODIPine 5mg tablet PO SCH (08:00)
[2019-03-27] MEDS: citalopram 20mg tablet PO SCH (08:00)
[2019-03-27] MEDS: K and/or MAG REPLACEMENT MC SCH (08:59)
[2019-03-27 11:00] VITALS: BP 151/74
[2019-03-27] MEDS ORDERED: amLODIPine 5mg tablet PO ONE (11:00)
[2019-03-27] MEDS: nystatin 500,000 unit/5ML UD oral suspension PO SCH ×2 (14:15→20:14)
[2019-03-27 15:00] VITALS: BP 138/55
[2019-03-27] MEDS: cefpodoxime proxetil 100mg tablet PO SCH (17:26)
[2019-03-27 18:00] VITALS: BP 144/58
--- NOTE | 2019-03-27 18:26 | NUR ---
Problems reprioritized. Patient report given, questions answered & plan of care reviewed with Elham Lion RN, pt greeted at bedside.
[2019-03-27] MEDS ORDERED: VANCOMYCIN LEVEL IV ONE (18:30)
[2019-03-27] MEDS: furosemide 20MG tablet PO SCH (20:13)
[2019-03-27] MEDS: potassium chloride 10mEq ER tablet PO SCH (20:13)
[2019-03-27 22:00] VITALS: BP 159/72
[2019-03-28 02:00] VITALS: BP 183/73
[2019-03-28] MEDS: ipratropium/albuterol 3ml nebule NEB SCH ×6 (03:07→22:51)
--- NOTE | 2019-03-28 06:15 | NUR ---
Report received from GAETANO Lizarraga. Questions answered and care plan reviewed. Problem list reviewed.
[2019-03-28 06:54] LABS: MAGNESIUM 1.7 MG/DL (1.5-2.4)
[2019-03-28 07:00] VITALS: BP 175/72
[2019-03-28] MEDS: nicotine 7mg patch - 24hr TD SCH ×2 (07:38→08:00)
[2019-03-28] MEDS: pantoprazole 40mg Tablet.DR PO SCH (07:38)
[2019-03-28] MEDS: citalopram 20mg tablet PO SCH (07:39)
[2019-03-28] MEDS: docusate sod 100mg capsule PO SCH ×3 (07:39→20:00)
[2019-03-28] MEDS: gabapentin 300mg capsule PO SCH ×2 (07:40→20:56)
[2019-03-28] MEDS: amLODIPine 5mg tablet PO SCH (07:40)
[2019-03-28] MEDS: buprenorphine/naloxone 8MG-2MG SUBlingual film SL SCH ×3 (07:41→20:56)
[2019-03-28] MEDS: furosemide 20MG tablet PO SCH ×2 (07:42→20:56)
[2019-03-28] MEDS: apixaban 5mg tablet PO SCH ×2 (07:42→20:54)
[2019-03-28] MEDS: aspirin 81mg tablet.DR PO SCH (07:42)
[2019-03-28] MEDS: lactobacillus rhamnosus 10,000 MMU CELLS/CAPSULE PO SCH ×2 (07:49→20:55)
[2019-03-28] MEDS: cefpodoxime proxetil 100mg tablet PO SCH ×2 (07:50→17:22)
[2019-03-28] MEDS: metoprolol tartrate 12.5mg (1/2 tablet) PO SCH ×2 (07:51→20:56)
[2019-03-28] MEDS: risperiDONE 2mg tablet PO SCH ×2 (07:51→20:55)
[2019-03-28] MEDS: prednisone 10mg tablet PO SCH (07:52)
[2019-03-28] MEDS: potassium chloride 10mEq ER tablet PO SCH ×2 (08:00→20:55)
[2019-03-28] MEDS: nystatin 500,000 unit/5ML UD oral suspension PO SCH ×3 (08:00→20:56)
[2019-03-28] MEDS: K and/or MAG REPLACEMENT MC SCH (08:00)
[2019-03-28 11:38] VITALS: BP 158/100
--- NOTE | 2019-03-28 11:42 | NUR ---
Rechecked SA02 due to low reading from 1100 VS (90% on RA). Is now 94% on RA.
--- NOTE | 2019-03-28 12:01 | NUR ---
Initial: Pt admit w/ community-acquired PNA, COPD exacerbation, SOB, and encephalopathy. Hx T2DM A1C <7 GLU 160's on prednisone. LLE cellulitis w/ small open sore top of L foot per EMR. WC bound at baseline w/ oral thrush per MD note. PO 100% heart healthy diet. LBM large 03/26. Will monitor for additional protein needs. Rec: 1. continue heart healthy diet 2. monitor for ONS needs 3. wt per rx Addendum: 03/28/19 at [address] Amended: Links added.
--- NOTE | 2019-03-28 14:30 | NUR ---
Photos taken of wounds on lt buttock, lt ankle and lt wrist and placed in chart.
[2019-03-28 15:00] VITALS: BP 156/69
[2019-03-28 18:00] VITALS: BP 146/70
--- NOTE | 2019-03-28 18:24 | NUR ---
Problems reprioritized. Patient report given, questions answered & plan of care reviewed with GAETANO NUÑEZ.
--- NOTE | 2019-03-28 18:25 | NUR ---
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
--- NOTE | 2019-03-28 18:29 | NUR ---
Patient in room PCU 3022. I have received report from Maria T torrez and had the opportunity to ask questions and assume patient care with ricardo torrez.
[2019-03-28] MEDS: HYDROcodone/acetaminophen 5mg/325mg tablet PO PRN (19:09)
[2019-03-28 22:00] VITALS: BP 147/67
[2019-03-29 02:00] VITALS: BP 155/76
[2019-03-29] MEDS: ipratropium/albuterol 3ml nebule NEB SCH ×3 (03:00→11:33)
[2019-03-29 06:00] VITALS: BP 178/85
--- NOTE | 2019-03-29 06:19 | NUR ---
Report given to GAETANO Rivera and GAETANO Han. Opportunity for questions and assume patient care was given.
--- NOTE | 2019-03-29 06:24 | NUR ---
Problems reprioritized. Patient report given, questions answered & plan of care reviewed with Nicole and Emely Rns. Orientee documentation: I have reviewed and agree with all interventions, assessments performed and documented by Renetta SALTER . pt rested throughout night. Ate all her dinner and a sandwich. no signs of distress noted.
--- NOTE | 2019-03-29 06:30 | NUR ---
Patient in room PCU 3022. I have received report from GAETANO Jackson and GAETANO Marks and had the opportunity to ask questions and assume patient care.
[2019-03-29] MEDS: K and/or MAG REPLACEMENT MC SCH (08:00)
[2019-03-29] MEDS: furosemide 20MG tablet PO SCH (08:23)
[2019-03-29] MEDS: pantoprazole 40mg Tablet.DR PO SCH (08:23)
[2019-03-29] MEDS: docusate sod 100mg capsule PO SCH (08:23)
[2019-03-29] MEDS: apixaban 5mg tablet PO SCH (08:23)
[2019-03-29] MEDS: risperiDONE 2mg tablet PO SCH (08:23)
[2019-03-29] MEDS: prednisone 10mg tablet PO SCH (08:23)
[2019-03-29] MEDS: aspirin 81mg tablet.DR PO SCH (08:23)
[2019-03-29] MEDS: gabapentin 300mg capsule PO SCH (08:23)
[2019-03-29] MEDS: citalopram 20mg tablet PO SCH (08:24)
[2019-03-29] MEDS: metoprolol tartrate 12.5mg (1/2 tablet) PO SCH (08:24)
[2019-03-29] MEDS: amLODIPine 5mg tablet PO SCH (08:24)
[2019-03-29] MEDS: potassium chloride 10mEq ER tablet PO SCH (08:24)
[2019-03-29] MEDS: lactobacillus rhamnosus 10,000 MMU CELLS/CAPSULE PO SCH (08:24)
[2019-03-29] MEDS: nicotine 7mg patch - 24hr TD SCH (08:25)
[2019-03-29] MEDS: buprenorphine/naloxone 8MG-2MG SUBlingual film SL SCH ×2 (08:25→13:26)
[2019-03-29] MEDS: nystatin 500,000 unit/5ML UD oral suspension PO SCH ×2 (08:25→13:26)
[2019-03-29] MEDS: cefpodoxime proxetil 100mg tablet PO SCH (08:36)
[2019-03-29] MEDS: HYDROcodone/acetaminophen 5mg/325mg tablet PO PRN (08:37)
[2019-03-29 11:00] VITALS: BP 163/91
[2019-03-29] MEDS ORDERED: UMEC62.5 NAS (11:54)
[2019-03-29] MEDS ORDERED: FURO20TA4 PO (11:54)
[2019-03-29] MEDS ORDERED: METO25TA6 PO (11:54)
[2019-03-29] MEDS ORDERED: ASPI-1071 PO (11:54)
[2019-03-29] MEDS ORDERED: NYST1000 PO (11:54)
[2019-03-29] MEDS ORDERED: FLUT1BLS3 NAS (11:54)
[2019-03-29] MEDS ORDERED: POTA10CA44 PO (11:54)
[2019-03-29] MEDS ORDERED: CEFP100T7 PO (11:54)
[2019-03-29] MEDS ORDERED: ALBU18HF2 IH (11:54)
--- NOTE | 2019-03-29 15:05 | NUR ---
Patient discharge stable in no apparent distress with medications and walker delivered by Dotty. Patient wheeled out in wheelchair to transportation.
== END 2019-03-29 15:31 | disposition home or self-care (01) | DRG 720 ==
LOC: ER 13:59 → PCU 3S 19:03 → CMPBEDREQ 03-23 19:42
PROVIDERS: ADMIT Internal Medicine; ATTEND Hospitalist
PROC: 5A09357 Assistance with Respiratory Ventilation, Less than 24 Consecutive Hours, Continuous Positive Airway Pressure (ICD-10-PCS; principal; 2019-03-22)
PROC: 5A09357 Assistance with Respiratory Ventilation, Less than 24 Consecutive Hours, Continuous Positive Airway Pressure (ICD-10-PCS; 2019-03-23)
PROC: 5A09357 Assistance with Respiratory Ventilation, Less than 24 Consecutive Hours, Continuous Positive Airway Pressure (ICD-10-PCS; 2019-03-27)
DX: A41.9 Sepsis, unspecified organism (principal); I21.A1 Myocardial infarction type 2; I50.33 Acute on chronic diastolic (congestive) heart failure; J96.01 Acute respiratory failure with hypoxia; J96.02 Acute respiratory failure with hypercapnia; G93.1 Anoxic brain damage, not elsewhere classified; G93.41 Metabolic encephalopathy; J18.9 Pneumonia, unspecified organism; I13.0 Hypertensive heart and chronic kidney disease with heart failure and stage 1 through stage 4 chronic kidney disease, or unspecified chronic kidney disease; N17.9 Acute kidney failure, unspecified; B37.0 Candidal stomatitis; E66.01 Morbid (severe) obesity due to excess calories; F20.9 Schizophrenia, unspecified; F11.10 Opioid abuse, uncomplicated; F12.90 Cannabis use, unspecified, uncomplicated; F32.9 Major depressive disorder, single episode, unspecified; F41.9 Anxiety disorder, unspecified; G43.909 Migraine, unspecified, not intractable, without status migrainosus; G62.9 Polyneuropathy, unspecified; M19.90 Unspecified osteoarthritis, unspecified site; G89.4 Chronic pain syndrome; F17.210 Nicotine dependence, cigarettes, uncomplicated; J44.0 Chronic obstructive pulmonary disease with (acute) lower respiratory infection; J44.1 Chronic obstructive pulmonary disease with (acute) exacerbation; L03.116 Cellulitis of left lower limb; N18.3 Chronic kidney disease, stage 3 (moderate); N39.0 Urinary tract infection, site not specified; I25.2 Old myocardial infarction; Z59.0 Homelessness; Z79.01 Long term (current) use of anticoagulants; Z79.82 Long term (current) use of aspirin; Z86.711 Personal history of pulmonary embolism; Z99.3 Dependence on wheelchair; Z88.5 Allergy status to narcotic agent; Z88.0 Allergy status to penicillin; Z88.8 Allergy status to other drugs, medicaments and biological substances; Z68.41 Body mass index [BMI] 40.0-44.9, adult; Z71.51 Drug abuse counseling and surveillance of drug abuser; Z71.6 Tobacco abuse counseling
CPT/HCPCS: 36415; 36600; 70450; 71045; 71250; 74176; 80053; 80061; 80202; 80305; 81001; 81025; 82803; 82948; 83036; 83605; 83735; 83880; 84132; 84145; 84484; 85018; 85025; 85610; 85730; 87040; 87070; 87088; 87205; 93005; 93306; 94640; 94660; 94760; 96365; 96368; 96375; 97110; 97116; 97162; 97530; 99285; C9113; G0378; J0360; J0456; J0696; J1940; J2930; J3370; J3490; J7030; J7512

== ENCOUNTER 2019-11-08 16:40 | Emergency (ER) | payer MEDICAID ==
[~2019-11-08] VITALS: Ht 170.2 cm; Wt 127.0 kg
[~2019-11-08 16:40] MED LIST changes: +ALBU18HF2 IH; -ALBU6.7H INH; +APIX5TAB3 PO; -BISA-155 PO; -BUPR1FIL3; +BUPR1FIL3 SL; +CEFP100T7 PO; -DIAZ5TAB PO; +ESCI20TA PO; +FLUT1BLS3 NAS; -FURO20TA4; +FURO20TA4 PO; -GABA-532; +GABA-532 PO; -IBUP-1985 PO; -NIT10P TD; +NYST1000 PO; -ONDA4TAB6 PO; -POTA10TA36 PO; -PROC5TAB56 PO; -RISP2TAB3 PO; +RISP4TAB7 PO; -SUMA25TA35 PO; +TRIA454O TOP; +UMEC62.5 NAS
[2019-11-08 17:12] VITALS: BP 182/79
[2019-11-08] MEDS ORDERED: ipratropium/albuterol 3ml nebule NEB ONE (17:35)
[2019-11-08] MEDS ORDERED: ketorolac tromethamine 15mg/ml inj. IM ONE (17:35)
[2019-11-08] MEDS ORDERED: predniSONE 20 mg tablet PO ONE (17:35)
[2019-11-08] MEDS ORDERED: azithromycin 250mg tablet PO ONE (17:35)
[2019-11-08] MEDS ORDERED: benzonatate 100mg capsule PO ONE (17:35)
[2019-11-08] MEDS ORDERED: AZIT-63 PO (18:21)
[2019-11-08] MEDS ORDERED: BENZ-16 PO (18:21)
[2019-11-10] MEDS ORDERED: ESCI20TA38 PO (15:33)
== END 2019-11-08 18:45 | disposition home or self-care (01) ==
LOC: ER 16:41
DX: S39.012A Strain of muscle, fascia and tendon of lower back, initial encounter (principal); J40 Bronchitis, not specified as acute or chronic; I11.0 Hypertensive heart disease with heart failure; I21.9 Acute myocardial infarction, unspecified; J44.9 Chronic obstructive pulmonary disease, unspecified; G62.9 Polyneuropathy, unspecified; G89.29 Other chronic pain; F41.9 Anxiety disorder, unspecified; F32.9 Major depressive disorder, single episode, unspecified; F10.99 Alcohol use, unspecified with unspecified alcohol-induced disorder; G43.909 Migraine, unspecified, not intractable, without status migrainosus; I25.2 Old myocardial infarction; M19.90 Unspecified osteoarthritis, unspecified site; F20.9 Schizophrenia, unspecified; F15.90 Other stimulant use, unspecified, uncomplicated; F12.90 Cannabis use, unspecified, uncomplicated; Z88.8 Allergy status to other drugs, medicaments and biological substances; Z98.890 Other specified postprocedural states; Z79.899 Other long term (current) drug therapy; Z86.711 Personal history of pulmonary embolism; Z86.718 Personal history of other venous thrombosis and embolism; Z86.14 Personal history of Methicillin resistant Staphylococcus aureus infection; Y90.9 Presence of alcohol in blood, level not specified
CPT/HCPCS: 94640; 96372; 99284; J1885; J7512; 94760

== ENCOUNTER 2019-11-10 11:52 | Inpatient (IN) | payer MEDICAID ==
[~2019-11-10] VITALS: Ht 170.2 cm; Wt 126.8 kg
[~2019-11-10 11:52] MED LIST changes: +AZIT-63 PO; +BENZ-16 PO
--- NOTE | 2019-11-10 12:51 | NUR ---
PT TAKEN OFF OF NRB AND PUT ON NC AT 3-- 98%
[2019-11-10] MEDS ORDERED: levoFLOXACIN-Levaquin 750MG/D5 150 ML IV ONE (13:15)
[2019-11-10] MEDS ORDERED: methylPREDNISolone sod succ 125mg/2ml vial IV ONE (13:15)
[2019-11-10] MEDS ORDERED: CefTRIAXone 2gm/D5W 50ml 50 ML IV ONE (13:15)
--- NOTE | 2019-11-10 13:48 | NUR ---
PICC nurse is at the bedside to attempt IV access after ED aoc aadc operations staff officer's x 3 unable to obtain IV access.
--- NOTE | 2019-11-10 14:02 | NUR ---
RT PAGED FOR SVN TX HOWEVER THERE IS NO MED ORDERED. RN AWARE.
[2019-11-10 14:44] LABS: BASOPHILS % (AUTO) 0.2 % (0-1); EOSINOPHILS % (AUTO) 0.1 % (0-6); HEMATOCRIT 35.8 % (35.0-45.0); HEMOGLOBIN 11.5 g/dl (12.0-16.0); LYMPHOCYTES # (AUTO) 0.9 X10'3 (1.1-4.8); LYMPHOCYTES % (AUTO) 9.7 % (21-51); MEAN CORPUSCULAR HEMOGLOBIN 28.2 PG (27.0-31.0); MEAN CORPUSCULAR HGB CONC 32.1 g/dL (33.0-36.5); MEAN CORPUSCULAR VOLUME 87.7 FL (78-98); MEAN PLATELET VOLUME 8.8 FL (7.4-10.4); MONOCYTES # (AUTO) 0.7 X10'3 (0-0.9); NEUTROPHILS # (AUTO) 7.2 X10'3 (1.8-7.7); PLATELET COUNT 169 X10'3 (140-440); RED BLOOD COUNT 4.08 X10'6 (4.20-5.60); RED CELL DISTRIBUTION WIDTH 15.4 % (11.5-14.5); WHITE BLOOD COUNT 8.8 X10'3 (4.5-11.0)
[2019-11-10 14:52] LABS: ALANINE AMINOTRANSFERASE 34 U/L (12-78); ALBUMIN 2.9 G/DL (3.4-5.0); ALBUMIN/GLOBULIN RATIO 0.6 (1.1-1.5); ALKALINE PHOSPHATASE 159 IU/L (46-116); ANION GAP 7 (8-16); ASPARTATE AMINO TRANSFERASE 23 U/L (10-37); BILIRUBIN,TOTAL 0.5 MG/DL (0.1-1.0); BLOOD UREA NITROGEN 15 MG/DL (7-18); BUN/CREATININE RATIO 14.6 (6.6-38.0); CHLORIDE 105 MMOL/L (99-107); CREATININE 1.03 MG/DL (0.40-0.90); GLUCOSE 124 MG/DL (70-104); POTASSIUM 4.2 MMOL/L (3.5-5.1); SODIUM 139 MMOL/L (135-145); TOTAL CARBON DIOXIDE 26.8 MMOL/L (24-32); TOTAL PROTEIN 7.8 G/DL (6.4-8.2); eGFR 65 ML/MIN
[2019-11-10 14:59] LABS: MAGNESIUM 1.7 MG/DL (1.5-2.4)
[2019-11-10] MEDS ORDERED: ESCI20TA45 PO (15:33)
[2019-11-10] MEDS ORDERED: GABA-532 PO ×2 (15:33)
[2019-11-10] MEDS ORDERED: FURO40TA4 PO (15:33)
[2019-11-10] MEDS ORDERED: ALBU18HF2 INH (15:33)
[2019-11-10] MEDS ORDERED: TIOT4MIS5 IH (15:33)
[2019-11-10] MEDS ORDERED: APIX5TAB3 PO (15:33)
[2019-11-10] MEDS ORDERED: METO50TA17 PO (15:33)
[2019-11-10] MEDS ORDERED: RISP4TAB2 PO (15:33)
[2019-11-10] MEDS ORDERED: MELO-102 PO (15:33)
[2019-11-10] MEDS ORDERED: POTA10CA44 PO (15:33)
[2019-11-10] MEDS ORDERED: potassium CL 10mEq/100ml bag 100 ML IV PRN ×2 (16:20)
[2019-11-10] MEDS ORDERED: magnesium Cl slow-release 64mg tablet PO PRN (16:20)
[2019-11-10] MEDS ORDERED: morphine 2 MG/ML inj. syringe IV PRN ×2 (16:20)
[2019-11-10] MEDS ORDERED: acetaminophen 325mg tablet PO PRN ×2 (16:20)
[2019-11-10] MEDS ORDERED: ondansetron/PF 4mg/2ml inj IV PRN (16:20)
[2019-11-10] MEDS ORDERED: magnesium 2GM in 50ml NS 50 ML IV PRN (16:20)
[2019-11-10] MEDS ORDERED: potassium Cl 20 mEq SR tablet PO PRN ×2 (16:20)
[2019-11-10] MEDS ORDERED: magnesium 4gm in 100ml NS 100 ML IV PRN (16:20)
[2019-11-10] MEDS ORDERED: HYDROcodone/acetaminophen 5mg/325mg tablet PO PRN (16:20)
--- NOTE | 2019-11-10 16:56 | NUR ---
Levaquin infusion stopped, Extended IV access flushed and capped.
[2019-11-10] MEDS: albuterol 2.5 MG/3 ML nebule NEB SCH ×2 (19:14→23:09)
[2019-11-10] MEDS: HYDROcodone/acetaminophen 10/325mg tab PO PRN (19:20)
[2019-11-10] MEDS: K and/or MAG REPLACEMENT MC SCH (19:23)
[2019-11-10] MEDS ORDERED: heparin, porcine 5000 units/ml vial SQ SCH (20:00)
--- NOTE | 2019-11-10 20:11 | NUR ---
Pt assisted to a hospital bed and is aware we are awaiting inpatient bed assignment at this time.
[2019-11-10] MEDS ORDERED: ipratropium 0.5 MG/2.5ML nebule IH PRN (20:25)
[2019-11-10] MEDS: apixaban 5mg tablet PO SCH (20:39)
[2019-11-10] MEDS: docusate sod 100mg capsule PO SCH (20:39)
[2019-11-10] MEDS: gabapentin 300mg capsule PO SCH (20:39)
[2019-11-10] MEDS: metoprolol tartrate 50mg tablet PO SCH (20:39)
[2019-11-10] MEDS: furosemide 40mg/4ml inj IV SCH (20:42)
[2019-11-10] MEDS: risperiDONE 2mg tablet PO SCH (22:09)
[2019-11-10] MEDS: potassium chloride 10mEq ER tablet PO SCH (22:09)
[2019-11-11] MEDS: albuterol 2.5 MG/3 ML nebule NEB SCH ×6 (03:12→23:31)
--- NOTE | 2019-11-11 06:35 | NUR ---
PATIENT ON HOSPITAL BE ASLEEP.
[2019-11-11 07:28] LABS: BASOPHILS % (AUTO) 0.2 % (0-1); EOSINOPHILS % (AUTO) 0 % (0-6); HEMATOCRIT 36.2 % (35.0-45.0); HEMOGLOBIN 11.8 g/dl (12.0-16.0); LYMPHOCYTES # (AUTO) 0.6 X10'3 (1.1-4.8); LYMPHOCYTES % (AUTO) 12.3 % (21-51); MEAN CORPUSCULAR HEMOGLOBIN 28.7 PG (27.0-31.0); MEAN CORPUSCULAR HGB CONC 32.5 g/dL (33.0-36.5); MEAN CORPUSCULAR VOLUME 88.3 FL (78-98); MEAN PLATELET VOLUME 9.2 FL (7.4-10.4); MONOCYTES # (AUTO) 0.2 X10'3 (0-0.9); MONOCYTES % (AUTO) 3.7 % (2-12); NEUTROPHILS # (AUTO) 4.3 X10'3 (1.8-7.7); NEUTROPHILS % (AUTO) 83.8 % (42-75); PLATELET COUNT 154 X10'3 (140-440); RED CELL DISTRIBUTION WIDTH 14.9 % (11.5-14.5); WHITE BLOOD COUNT 5.2 X10'3 (4.5-11.0)
[2019-11-11 07:45] VITALS: BP 191/121
[2019-11-11 07:49] LABS: ALANINE AMINOTRANSFERASE 38 U/L (12-78); ALBUMIN 2.6 G/DL (3.4-5.0); ALBUMIN/GLOBULIN RATIO 0.5 (1.1-1.5); ALKALINE PHOSPHATASE 190 IU/L (46-116); ANION GAP 6 (8-16); ASPARTATE AMINO TRANSFERASE 32 U/L (10-37); BILIRUBIN,TOTAL 0.3 MG/DL (0.1-1.0); BLOOD UREA NITROGEN 23 MG/DL (7-18); BUN/CREATININE RATIO 21.1 (6.6-38.0); CALCIUM 9.5 MG/DL (8.5-10.1); CHLORIDE 106 MMOL/L (99-107); CREATININE 1.09 MG/DL (0.40-0.90); GLUCOSE 142 MG/DL (70-104); MAGNESIUM 1.7 MG/DL (1.5-2.4); POTASSIUM 4.9 MMOL/L (3.5-5.1); SODIUM 139 MMOL/L (135-145); TOTAL CARBON DIOXIDE 27.4 MMOL/L (24-32); TOTAL PROTEIN 7.8 G/DL (6.4-8.2); eGFR 61 ML/MIN
[2019-11-11] MEDS: potassium chloride 10mEq ER tablet PO SCH ×2 (07:56→20:48)
[2019-11-11] MEDS: K and/or MAG REPLACEMENT MC SCH ×2 (07:56→20:00)
[2019-11-11] MEDS: methylPREDNISolone sod succ 125mg/2ml vial IV SCH (08:02)
[2019-11-11] MEDS: furosemide 40mg/4ml inj IV SCH (08:02)
[2019-11-11] MEDS: apixaban 5mg tablet PO SCH ×2 (08:15→20:48)
[2019-11-11] MEDS: docusate sod 100mg capsule PO SCH ×2 (08:15→20:45)
[2019-11-11] MEDS: ESCITALOPRAM OXALATE 5 MG TABLET PO SCH (08:15)
[2019-11-11] MEDS: metoprolol tartrate 50mg tablet PO SCH ×2 (08:15→20:47)
[2019-11-11] MEDS: risperiDONE 2mg tablet PO SCH ×2 (08:16→20:48)
[2019-11-11] MEDS: levoFLOXACIN-Levaquin 500mg/D5 100 ML IV SCH (09:16)
[2019-11-11 11:00] VITALS: BP 178/93
--- NOTE | 2019-11-11 12:06 | NUR ---
PAGER ID: [phone] MESSAGE: JOHNNY 3019 Jos Adamson: BP 178/93 Pulse 52 GAETANO Soto Ext [phone]
[2019-11-11 14:19] LABS: HEMOGLOBIN A1C 6.2 % (4.5-6.2)
[2019-11-11 15:00] VITALS: BP 204/110
[2019-11-11] MEDS ORDERED: metoprolol tartrate 50mg tablet PO ONE (15:05)
[2019-11-11] MEDS ORDERED: furosemide 40mg/4ml inj IV ONE (15:05)
[2019-11-11 18:00] VITALS: BP 157/99
--- NOTE | 2019-11-11 18:29 | NUR ---
Patient in room PCU 3019. I have received report from Charles SALTER and had the opportunity to ask questions and assume patient care.
--- NOTE | 2019-11-11 18:30 | NUR ---
Problems reprioritized. Patient report given, questions answered & plan of care reviewed with GAETANO Sawant.
[2019-11-11] MEDS: HYDROcodone/acetaminophen 10/325mg tab PO PRN ×2 (18:47→23:46)
[2019-11-11] MEDS ORDERED: furosemide 40mg/4ml inj IV SCH (20:00)
[2019-11-11] MEDS: gabapentin 300mg capsule PO SCH (20:48)
[2019-11-11 22:00] VITALS: BP 151/88
[2019-11-12 02:00] VITALS: BP 147/84
[2019-11-12] MEDS: albuterol 2.5 MG/3 ML nebule NEB SCH ×4 (03:00→14:14)
[2019-11-12 06:00] VITALS: BP 181/111
--- NOTE | 2019-11-12 06:30 | NUR ---
Patient in room PCU 3019. I have received report from Savana SALTER and had the opportunity to ask questions and assume patient care.
--- NOTE | 2019-11-12 07:07 | NUR ---
Problems reprioritized. Patient report given, questions answered & plan of care reviewed with Sveta SALTER.
[2019-11-12] MEDS ORDERED: pantoprazole 40mg Tablet.DR PO SCH (07:30)
[2019-11-12 07:37] LABS: ALANINE AMINOTRANSFERASE 38 U/L (12-78); ALBUMIN 2.6 G/DL (3.4-5.0); ALBUMIN/GLOBULIN RATIO 0.6 (1.1-1.5); ALKALINE PHOSPHATASE 160 IU/L (46-116); ANION GAP 10 (8-16); ASPARTATE AMINO TRANSFERASE 23 U/L (10-37); BILIRUBIN,TOTAL 0.3 MG/DL (0.1-1.0); BLOOD UREA NITROGEN 28 MG/DL (7-18); BUN/CREATININE RATIO 22.4 (6.6-38.0); CALCIUM 9.2 MG/DL (8.5-10.1); CHLORIDE 104 MMOL/L (99-107); CREATININE 1.25 MG/DL (0.40-0.90); GLUCOSE 122 MG/DL (70-104); MAGNESIUM 1.6 MG/DL (1.5-2.4); POTASSIUM 3.6 MMOL/L (3.5-5.1); SODIUM 141 MMOL/L (135-145); TOTAL CARBON DIOXIDE 27.1 MMOL/L (24-32); TOTAL PROTEIN 7.3 G/DL (6.4-8.2); eGFR 52 ML/MIN
[2019-11-12] MEDS: K and/or MAG REPLACEMENT MC SCH (08:00)
[2019-11-12] MEDS: furosemide 40mg/4ml inj IV SCH (08:11)
[2019-11-12] MEDS: levoFLOXACIN-Levaquin 500mg/D5 100 ML IV SCH (08:11)
[2019-11-12] MEDS: methylPREDNISolone sod succ 125mg/2ml vial IV SCH (08:11)
[2019-11-12] MEDS: potassium chloride 10mEq ER tablet PO SCH (08:12)
[2019-11-12] MEDS: risperiDONE 2mg tablet PO SCH (08:12)
[2019-11-12] MEDS: ESCITALOPRAM OXALATE 5 MG TABLET PO SCH (08:12)
[2019-11-12] MEDS: HYDROcodone/acetaminophen 10/325mg tab PO PRN (08:12)
[2019-11-12] MEDS: docusate sod 100mg capsule PO SCH (08:12)
[2019-11-12] MEDS: apixaban 5mg tablet PO SCH (08:13)
[2019-11-12] MEDS: metoprolol tartrate 50mg tablet PO SCH (08:15)
[2019-11-12 09:06] LABS: BASOPHILS % (AUTO) 0.1 % (0-1); EOSINOPHILS % (AUTO) 0 % (0-6); HEMOGLOBIN 11.8 g/dl (12.0-16.0); LYMPHOCYTES # (AUTO) 1.1 X10'3 (1.1-4.8); LYMPHOCYTES % (AUTO) 15.6 % (21-51); MEAN CORPUSCULAR HEMOGLOBIN 28.3 PG (27.0-31.0); MEAN CORPUSCULAR HGB CONC 32.8 g/dL (33.0-36.5); MEAN CORPUSCULAR VOLUME 86.4 FL (78-98); MEAN PLATELET VOLUME 9.4 FL (7.4-10.4); MONOCYTES # (AUTO) 0.8 X10'3 (0-0.9); MONOCYTES % (AUTO) 11.2 % (2-12); NEUTROPHILS # (AUTO) 5.4 X10'3 (1.8-7.7); NEUTROPHILS % (AUTO) 73.1 % (42-75); PLATELET COUNT 194 X10'3 (140-440); RED BLOOD COUNT 4.16 X10'6 (4.20-5.60); RED CELL DISTRIBUTION WIDTH 14.8 % (11.5-14.5); WHITE BLOOD COUNT 7.4 X10'3 (4.5-11.0)
--- NOTE | 2019-11-12 09:12 | NUR ---
Paged Dr. Pham re pts AM medication orders PAGER ID: [phone] MESSAGE: Sveta [phone] [id number] Leonides Austin, pt has two orders for 40 mg Lasix IV in AM, I just wanted to confirm that this is correct before I give it. Thanks
--- NOTE | 2019-11-12 10:42 | NUR ---
Paged Dr. Pham re pts high blood pressure PAGER ID: [phone] MESSAGE: Sveta SALTER [phone] Leonides Austin in 3019, BP 185/86 with HR of 54, already received scheduled lopressor, please advise. thanks! Addendum: 11/12/19 at 1136 by Allison Paredes RN Dr. Pham called back, stated to only give one of the scheduled doses of 40 mg lasix, not both. No other orders received. Will continue to monitor the pt closely.
[2019-11-12 11:00] VITALS: BP 185/83
--- NOTE | 2019-11-12 11:23 | NUR ---
PAGER ID: [phone] MESSAGE: PLEASE CALL [facility] [phone] REGARDING 3019 PHIPPS. INCREASED BP MICHAEL U
--- NOTE | 2019-11-12 12:11 | NUR ---
Paged Dr. Pham re pts high blood pressure, monitoring closely PAGER ID: [phone] MESSAGE: Sveta SALTER [phone] Leonides Austin in 3018, Systolic blood pressure ranging in the 180s-200's, please advise. Thanks!
[2019-11-12] MEDS ORDERED: PRED10TA23 PO (14:48)
[2019-11-12] MEDS ORDERED: LEVO500T2 PO (14:49)
[2019-11-12] MEDS ORDERED: LISI2.5T2 PO (14:56)
[2019-11-12] MEDS ORDERED: IPRA3AMP9 IH (14:57)
--- NOTE | 2019-11-12 16:03 | NUR ---
Stable for discharge per MD, discharge packet and instructions reviewed with the pt, all questions answered, prescriptions called to [facility] [address] in [place], PIV and tele monitor discontinued, left the unit at 1600 in wheelchair with nurses aide
== END 2019-11-12 16:00 | disposition home or self-care (01) | DRG 139 ==
LOC: ER 11:53 → ED HOLD 16:25 → PCU 3S 11-11 07:40
PROVIDERS: ADMIT Internal Medicine; ATTEND Internal Medicine
DX: J18.9 Pneumonia, unspecified organism (principal); I50.23 Acute on chronic systolic (congestive) heart failure; F20.9 Schizophrenia, unspecified; J44.0 Chronic obstructive pulmonary disease with (acute) lower respiratory infection; I11.0 Hypertensive heart disease with heart failure; Z79.01 Long term (current) use of anticoagulants; F11.90 Opioid use, unspecified, uncomplicated; M19.90 Unspecified osteoarthritis, unspecified site; F32.9 Major depressive disorder, single episode, unspecified; F41.9 Anxiety disorder, unspecified; G89.4 Chronic pain syndrome; I25.10 Atherosclerotic heart disease of native coronary artery without angina pectoris; J44.1 Chronic obstructive pulmonary disease with (acute) exacerbation; Z86.711 Personal history of pulmonary embolism; I25.2 Old myocardial infarction; Z88.5 Allergy status to narcotic agent
CPT/HCPCS: 36415; 71045; 76937; 80053; 83036; 83605; 83735; 83880; 85025; 87040; 87081; 93005; 93306; 94640; 94760; 96365; 96368; 96375; 97161; 97530; 99285; G0378; J0696; J1940; J1956; J2270; J2930

== ENCOUNTER 2020-02-11 06:49 | Emergency (ER) | payer MEDICAID ==
[~2020-02-11] VITALS: Ht 165.1 cm; Wt 146.8 kg
[~2020-02-11 06:49] MED LIST changes: -ALBU18HF2 IH; +ALBU18HF2 INH; -ASPI-1071 PO; -AZIT-63 PO; -BENZ-16 PO; -BUPR1FIL3 SL; -CEFP100T7 PO; -ESCI20TA PO; +ESCI20TA45 PO; -FLUT1BLS3 NAS; -FURO20TA4 PO; +FURO40TA4 PO; +IPRA3AMP9 IH; -LISI-600 PO; +LISI2.5T2 PO; +MELO-102 PO; -METO25TA6 PO; +METO50TA17 PO; -NYST1000 PO; +POTA10CA44 PO; +RISP4TAB2 PO; -RISP4TAB7 PO; +TIOT4MIS5 IH; -TRIA454O TOP; -UMEC62.5 NAS
[2020-02-11] MEDS ORDERED: aspirin 81mg tab.chew PO ONE (07:05)
[2020-02-11] MEDS: nitroGLYCERIN 0.4mg SUBLingual tab SL PRN ×2 (07:28→07:42)
[2020-02-11 07:45] LABS: EOSINOPHILS # (AUTO) 0.1 X10'3 (0-0.9); HEMOGLOBIN 11.4 g/dl (12.0-16.0); MEAN CORPUSCULAR HGB CONC 31.7 g/dL (33.0-36.5); NEUTROPHILS # (AUTO) 1.4 X10'3 (1.8-7.7)
[2020-02-11 07:47] LABS: BASOPHILS % (AUTO) 0.6 % (0-1); EOSINOPHILS % (AUTO) 4.2 % (0-6); LYMPHOCYTES # (AUTO) 1.4 X10'3 (1.1-4.8); LYMPHOCYTES % (AUTO) 40.3 % (21-51); MEAN CORPUSCULAR HEMOGLOBIN 27.7 PG (27.0-31.0); MEAN CORPUSCULAR VOLUME 87.3 FL (78-98); MONOCYTES # (AUTO) 0.5 X10'3 (0-0.9); MONOCYTES % (AUTO) 13.4 % (2-12); NEUTROPHILS % (AUTO) 41.5 % (42-75); PLATELET COUNT 149 X10'3 (140-440); RED BLOOD COUNT 4.12 X10'6 (4.20-5.60); RED CELL DISTRIBUTION WIDTH 16.6 % (11.5-14.5); WHITE BLOOD COUNT 3.5 X10'3 (4.5-11.0)
[2020-02-11 07:52] LABS: ALANINE AMINOTRANSFERASE 13 U/L (12-78); ALBUMIN 3.1 G/DL (3.4-5.0); ALBUMIN/GLOBULIN RATIO 0.7 (1.1-1.5); ALKALINE PHOSPHATASE 162 IU/L (46-116); ANION GAP 3 (8-16); ASPARTATE AMINO TRANSFERASE 24 U/L (10-37); BILIRUBIN,TOTAL 0.4 MG/DL (0.1-1.0); BLOOD UREA NITROGEN 23 MG/DL (7-18); BUN/CREATININE RATIO 16.5 (6.6-38.0); CALCIUM 8.8 MG/DL (8.5-10.1); CHLORIDE 104 MMOL/L (99-107); CREATININE 1.39 MG/DL (0.40-0.90); GLUCOSE 93 MG/DL (70-104); POTASSIUM 3.6 MMOL/L (3.5-5.1); SODIUM 139 MMOL/L (135-145); TOTAL PROTEIN 7.8 G/DL (6.4-8.2); eGFR 46 ML/MIN
[2020-02-11] MEDS ORDERED: morphine 4 MG/ML inj SYRINge IV PRN (08:00)
[2020-02-11] MEDS ORDERED: normal saline 1000ML IV soln IVB ONE (08:00)
[2020-02-11] MEDS ORDERED: ondansetron/PF 4mg/2ml inj IV PRN (08:00)
[2020-02-11] MEDS ORDERED: iohexol 350MG/ML 100ml bottle IV ONE (08:38)
[2020-02-11 11:50] VITALS: BP 148/98
[2020-02-12] MEDS ORDERED: LIDO700A32 TOP (00:56)
== END 2020-02-11 12:07 | disposition home or self-care (01) ==
LOC: ER 06:50
DX: R07.89 Other chest pain (principal); I13.0 Hypertensive heart and chronic kidney disease with heart failure and stage 1 through stage 4 chronic kidney disease, or unspecified chronic kidney disease; N18.9 Chronic kidney disease, unspecified; I50.9 Heart failure, unspecified; G43.909 Migraine, unspecified, not intractable, without status migrainosus; I25.2 Old myocardial infarction; G62.9 Polyneuropathy, unspecified; J44.9 Chronic obstructive pulmonary disease, unspecified; M19.90 Unspecified osteoarthritis, unspecified site; G89.29 Other chronic pain; F41.9 Anxiety disorder, unspecified; F31.9 Bipolar disorder, unspecified; F20.9 Schizophrenia, unspecified; F12.920 Cannabis use, unspecified with intoxication, uncomplicated; F12.90 Cannabis use, unspecified, uncomplicated; F15.90 Other stimulant use, unspecified, uncomplicated; F11.90 Opioid use, unspecified, uncomplicated; Z86.711 Personal history of pulmonary embolism; Z86.718 Personal history of other venous thrombosis and embolism; Z98.890 Other specified postprocedural states; Z72.89 Other problems related to lifestyle; Z88.5 Allergy status to narcotic agent; Z88.0 Allergy status to penicillin; Z88.6 Allergy status to analgesic agent; Z79.899 Other long term (current) drug therapy; Z79.01 Long term (current) use of anticoagulants
CPT/HCPCS: 36415; 71045; 71275; 80053; 84484; 85025; 93005; 96374; 96375; 99285; J2270; J2405; J7030; Q9967

== ENCOUNTER 2020-02-11 20:47 | Inpatient (IN) | payer MEDICAID ==
[~2020-02-11] VITALS: Ht 172.7 cm; Wt 145.2 kg
--- NOTE | 2020-02-11 21:00 | NUR ---
REPORTS HAVING CAPTAIN SHERIN KOWALSKI PRIOR TO 911 CALL BETWEEN 6-12 OZ
--- NOTE | 2020-02-11 21:30 | NUR ---
decreased loc unable to complete med rec
[2020-02-11 21:35] LABS: ETHANOL < 0.010 GM/DL (0.0-0.010)
[2020-02-11 22:11] LABS: ALANINE AMINOTRANSFERASE 13 U/L (12-78); ALBUMIN 3.3 G/DL (3.4-5.0); ALBUMIN/GLOBULIN RATIO 0.7 (1.1-1.5); ALKALINE PHOSPHATASE 153 IU/L (46-116); ANION GAP 5 (8-16); ASPARTATE AMINO TRANSFERASE 24 U/L (10-37); BASOPHILS % (AUTO) 0.6 % (0-1); BILIRUBIN,TOTAL 0.3 MG/DL (0.1-1.0); BLOOD UREA NITROGEN 26 MG/DL (7-18); BUN/CREATININE RATIO 16.1 (6.6-38.0); CALCIUM 8.7 MG/DL (8.5-10.1); CHLORIDE 103 MMOL/L (99-107); CREATININE 1.61 MG/DL (0.40-0.90); EOSINOPHILS # (AUTO) 0.1 X10'3 (0-0.9); EOSINOPHILS % (AUTO) 3.4 % (0-6); GLUCOSE 108 MG/DL (70-104); HEMATOCRIT 35.9 % (35.0-45.0); HEMOGLOBIN 11.1 g/dl (12.0-16.0); LYMPHOCYTES # (AUTO) 1.4 X10'3 (1.1-4.8); LYMPHOCYTES % (AUTO) 32.8 % (21-51); MEAN CORPUSCULAR HEMOGLOBIN 27.2 PG (27.0-31.0); MEAN CORPUSCULAR VOLUME 87.8 FL (78-98); MEAN PLATELET VOLUME 8.4 FL (7.4-10.4); MONOCYTES # (AUTO) 0.6 X10'3 (0-0.9); MONOCYTES % (AUTO) 13.3 % (2-12); NEUTROPHILS # (AUTO) 2.1 X10'3 (1.8-7.7); NEUTROPHILS % (AUTO) 49.9 % (42-75); PLATELET COUNT 161 X10'3 (140-440); POTASSIUM 4.2 MMOL/L (3.5-5.1); RED BLOOD COUNT 4.09 X10'6 (4.20-5.60); RED CELL DISTRIBUTION WIDTH 16.5 % (11.5-14.5); SODIUM 138 MMOL/L (135-145); TOTAL CARBON DIOXIDE 30.4 MMOL/L (24-32); TOTAL PROTEIN 8.3 G/DL (6.4-8.2); WHITE BLOOD COUNT 4.3 X10'3 (4.5-11.0); eGFR 39 ML/MIN
--- NOTE | 2020-02-11 23:16 | NUR ---
FLINCHED WITH abg, DENIES ANY PAIN ASKED TO GO HOME WENT BACK TO SLEEP
[2020-02-11] MEDS ORDERED: naloxone 0.4 mg/ml inj IV ONE (23:20)
[2020-02-11 23:21] LABS: ABG BASE EXCESS 0.8 mmol/L (-2.0-3.0); ABG HCO3 30.3 mmol/L (22.0-26.0); ABG PCO2 (T) 74.6 mmHg (35.0-45.0); ABG PH (T) 7.223 (7.350-7.450); ABG PO2 (T) 73.9 mmHg (83-108); FCOHb 3.8 % (0.5-1.5); FLOW 4 L/min; FMetHb 0.3 % (0.3-1.12); FO2Hb 90.1 % (94-100); PATIENT TEMPERATURE 36.3
--- NOTE | 2020-02-11 23:42 | NUR ---
iv ATTEMPTS X [address] SOSA AWARE FOR DELAY IN NARCAN , REQUESTED SC OR iM ROUTE ADDITIONAL TUTORING MANAGER HERE TO ATTEMPT IV. PATIENT AROUSABLE SOLANO SNOT STAY AWAKE OR FLENCH WITH IV ATTEMPTS
[2020-02-12] VITALS (10 sets, daily range): BP systolic 101–144; BP diastolic 61–85
[2020-02-12] MEDS ORDERED: methylPREDNISolone sod succ 125mg/2ml vial IV ONE (00:10)
--- NOTE | 2020-02-12 00:11 | NUR ---
UNABLE TO SCAN NARCAN LABEL
[2020-02-12] MEDS ORDERED: naloxone 0.4 mg/ml inj IV ONE (00:35)
[2020-02-12] MEDS ORDERED: LIDO700A32 TOP (00:56)
--- NOTE | 2020-02-12 01:22 | NUR ---
UNABLE TO DRAW SERUM TROPONIN KELLY LEMONS RN NOTIFIED CALLED LAB WILL COME TO DRAW AFTER THEIR BREAK
[2020-02-12] MEDS ORDERED: naloxone 2mg/2ml inj 2 MG in normal saline 500ml IV soln 498 ML IV SCH (01:30)
--- NOTE | 2020-02-12 01:38 | NUR ---
PT SATS IN THE LOW 70S. STERNAL RUB HAS LITTLE EFFECT. MD ORDERED BIPAP. PT PUT ON 12L VIA NON REBREATHER TO INCREASE O2 SAT
--- NOTE | 2020-02-12 02:05 | NUR ---
RETURN FROM BREAK REASSUMED CARE PATIENT ON BIPAP SETTING 50 % fiO2 IPAP 15 EPAP 5 RATE 16 PIP 15.
--- NOTE | 2020-02-12 02:19 | NUR ---
NARCAN GTT INITIATED 25 ML HOUR
[2020-02-12 02:28] LABS: ACETAMINOPHEN < 2.0 UG/ML (10-30)
[2020-02-12] MEDS ORDERED: potassium CL 10mEq/100ml bag 100 ML IV PRN ×2 (02:30)
[2020-02-12] MEDS ORDERED: ondansetron/PF 4mg/2ml inj IV PRN (02:30)
[2020-02-12] MEDS ORDERED: potassium Cl 20 mEq SR tablet PO PRN ×2 (02:30)
[2020-02-12] MEDS: K, MAG and/or Phos replacement - Verify level? MC SCH ×2 (02:30→08:00)
[2020-02-12] MEDS ORDERED: albuterol 2.5 MG/3 ML nebule NEB PRN (02:30)
[2020-02-12] MEDS ORDERED: acetaminophen 325mg tablet PO PRN ×2 (02:30)
[2020-02-12] MEDS ORDERED: magnesium hydroxide 30ml (MOM) UD suspension PO PRN (02:30)
[2020-02-12] MEDS ORDERED: ALBUTEROL INHALER 1 PUFF/90 MCG INHALER IH PRN (02:35)
[2020-02-12] MEDS ORDERED: furosemide 10 MG/1 ML 10ml inj IV ONE (02:40)
[2020-02-12 03:01] LABS: ABG BASE EXCESS 1.5 mmol/L (-2.0-3.0); ABG HCO3 30.7 mmol/L (22.0-26.0); ABG OXYGEN SATURATION 97.2 % (95-98); ABG PCO2 (T) 73.4 mmHg (35.0-45.0); ABG PH (T) 7.239 (7.350-7.450); ABG PO2 (T) 102.2 mmHg (83-108); FCOHb 2.7 % (0.5-1.5); FMetHb 0.3 % (0.3-1.12); FO2Hb 94.3 % (94-100); RESPIRATORY RATE 16 b/min; TOTAL HEMOGLOBIN 12.2 G/dl (12.0-16.0)
[2020-02-12 03:02] LABS: URINE AMPHETAMINE SCREEN POSITIVE (Neg); URINE BARBITUATE SCREEN NEGATIVE (Neg); URINE BENZODIAZEPINES SCREEN NEGATIVE (Neg); URINE CANNABINOID SCREEN NEGATIVE (Neg); URINE COCAINE SCREEN NEGATIVE (Neg); URINE METHADONE SCREEN NEGATIVE (Neg); URINE OPIATE SCREEN POSITIVE (Neg); URINE PHENCYCLIDINE SCREEN NEGATIVE (Neg)
--- NOTE | 2020-02-12 03:05 | NUR ---
IPAP changed to 20 FIO2 decreased to 40% after last abg as reported by RT
--- NOTE | 2020-02-12 06:29 | NUR ---
received report on this patient
[2020-02-12] MEDS: furosemide 40mg tablet PO SCH ×2 (07:30→12:30)
[2020-02-12] MEDS ORDERED: pantoprazole 40mg Tablet.DR PO SCH (07:30)
[2020-02-12] MEDS ORDERED: lisinopril 2.5mg tablet PO SCH (08:00)
[2020-02-12] MEDS ORDERED: apixaban 5mg tablet PO SCH (08:00)
[2020-02-12] MEDS ORDERED: risperiDONE 2mg tablet PO SCH (08:00)
[2020-02-12] MEDS ORDERED: ipratropium 0.5 MG/2.5ML nebule NEB SCH (08:00)
[2020-02-12] MEDS ORDERED: metoprolol tartrate 50mg tablet PO SCH (08:00)
[2020-02-12] MEDS ORDERED: ESCITALOPRAM OXALATE 5 MG TABLET PO SCH (08:00)
--- NOTE | 2020-02-12 08:06 | NUR ---
patient remains on bipap, wakes up to sternal rub and nods appropriately to questions but, then falls back asleep. unsafe to swallow pills at this time. Will continue to monitor. VSS
--- NOTE | 2020-02-12 08:07 | NUR ---
patient is on narcan drip at 25ml/hr per MD order. Patient responds to sternal rub stimulus.
[2020-02-12 08:15] LABS: ALANINE AMINOTRANSFERASE 16 U/L (12-78); ALBUMIN 3.2 G/DL (3.4-5.0); ALBUMIN/GLOBULIN RATIO 0.6 (1.1-1.5); ALKALINE PHOSPHATASE 151 IU/L (46-116); ANION GAP 6 (8-16); ASPARTATE AMINO TRANSFERASE 26 U/L (10-37); BILIRUBIN,TOTAL 0.4 MG/DL (0.1-1.0); BLOOD UREA NITROGEN 24 MG/DL (7-18); BUN/CREATININE RATIO 15.2 (6.6-38.0); CALCIUM 8.8 MG/DL (8.5-10.1); CHLORIDE 103 MMOL/L (99-107); CREATININE 1.58 MG/DL (0.40-0.90); GLUCOSE 140 MG/DL (70-104); POTASSIUM 4.6 MMOL/L (3.5-5.1); SODIUM 138 MMOL/L (135-145); TOTAL CARBON DIOXIDE 28.8 MMOL/L (24-32); TOTAL PROTEIN 8.2 G/DL (6.4-8.2); eGFR 40 ML/MIN
--- NOTE | 2020-02-12 11:09 | NUR ---
all oral meds have been held due to patients mentation changes and inability to safely swallow. patient is still on narcan drip at 25mls/hr
--- NOTE | 2020-02-12 11:39 | NUR ---
bedside rounding done with dr faye, made him aware that this patient has not received any oral meds due to mentation and inability to swallow along with bipap dependence, he said "ok". New order received to repeat ABG, RT at the bedside drawing sample and now I am awaiting results.
[2020-02-12 11:56] LABS: ABG BASE EXCESS 1.2 mmol/L (-2.0-3.0); ABG HCO3 26.9 mmol/L (22.0-26.0); ABG OXYGEN SATURATION 82.7 % (95-98); ABG PCO2 (T) 47.1 mmHg (35.0-45.0); ABG PH (T) 7.375 (7.350-7.450); ABG PO2 (T) 46.4 mmHg (83-108); FCOHb 1.5 % (0.5-1.5); FMetHb 0.2 % (0.3-1.12); FO2Hb 81.3 % (94-100); TOTAL HEMOGLOBIN 12.6 G/dl (12.0-16.0)
--- NOTE | 2020-02-12 12:53 | NUR ---
received report from tiffanie SALTER Addendum: 02/12/20 at 1437 by Елена Nichols RN wrong patient
--- NOTE | 2020-02-12 14:37 | NUR ---
patient woke up and demanded that this hospital lets her go. Stated "why are you keeping me here? Are you that desperate for patients? I am leaving before I get the Covid!". She then called her "son" on her personal cell phone and told him to come get her immediately. I explained to the patient that i wanted to be sure she was safe for discharge because she is currently on a narcan drip and I told her that if i disconnect it she could become somulent again once she leaves the hospital and possibly could have a hard time breathing again. She responded "I dont care Im leaving, get all this stuff off me now!". Patient was disconnected from all equipment and IV removed once charge nurse and Dr. Gautam were made aware of what was going on. Patient signed AMA and got dressed. I wheeled her down with all personal belongings and helped her get her valuables from security then proceeded to wheel her to the car she was leaving in. patient was helped into the backseat and was driven away by "son" and another friend.
== END 2020-02-12 14:59 | disposition left against medical advice (07) | DRG 812 ==
LOC: ER 20:47 → ED HOLD 02-12 02:29 → CICU 2S 02-12 03:32
PROVIDERS: ADMIT Internal Medicine Critical Care Medicine; ATTEND Internal Medicine Critical Care Medicine
PROC: 5A09357 Assistance with Respiratory Ventilation, Less than 24 Consecutive Hours, Continuous Positive Airway Pressure (ICD-10-PCS; principal; 2020-02-12)
DX: T40.2X1A Poisoning by other opioids, accidental (unintentional), initial encounter (principal); J96.01 Acute respiratory failure with hypoxia; J96.02 Acute respiratory failure with hypercapnia; E87.2 Acidosis; I11.0 Hypertensive heart disease with heart failure; I50.9 Heart failure, unspecified; F11.20 Opioid dependence, uncomplicated; F12.90 Cannabis use, unspecified, uncomplicated; F17.210 Nicotine dependence, cigarettes, uncomplicated; G43.909 Migraine, unspecified, not intractable, without status migrainosus; G62.9 Polyneuropathy, unspecified; J44.9 Chronic obstructive pulmonary disease, unspecified; G89.29 Other chronic pain; Z53.29 Procedure and treatment not carried out because of patient's decision for other reasons; M54.9 Dorsalgia, unspecified; M19.90 Unspecified osteoarthritis, unspecified site; N28.9 Disorder of kidney and ureter, unspecified; F41.9 Anxiety disorder, unspecified; F32.9 Major depressive disorder, single episode, unspecified; F20.9 Schizophrenia, unspecified; Z88.5 Allergy status to narcotic agent; I25.2 Old myocardial infarction; Z88.0 Allergy status to penicillin; Z88.8 Allergy status to other drugs, medicaments and biological substances; Z79.899 Other long term (current) drug therapy; Z86.711 Personal history of pulmonary embolism; Z79.01 Long term (current) use of anticoagulants; Y92.89 Other specified places as the place of occurrence of the external cause
CPT/HCPCS: 36415; 36600; 71045; 80053; 80305; 80320; 80329; 82803; 83735; 83880; 84484; 85018; 85025; 93005; 94640; 94660; 94760; 96365; 96375; 99291; G0378; J1940; J2310; J2930; J7040

== ENCOUNTER 2020-12-16 22:04 | Emergency (ER) | payer MEDICARE, MEDICAID ==
[~2020-12-16] VITALS: Ht 170.2 cm; Wt 136.4 kg
[~2020-12-16 22:04] MED LIST changes: -ESCI20TA45 PO; +ESCI20TA56 PO; +LIDO700A32 TOP; -RISP4TAB2 PO; +RISP4TAB73 PO
[2020-12-16 22:10] VITALS: BP 130/78
[2020-12-16] MEDS ORDERED: DOXYCYCLINE 100MG CAPSULE PO STA (23:41)
[2020-12-16] MEDS ORDERED: DOXY100C43 PO (23:44)
[2020-12-16] MEDS ORDERED: ibuprofen tablet 400 MG TABLET PO ONE (23:45)
== END 2020-12-17 00:02 | disposition home or self-care (01) ==
LOC: ER 22:04
DX: S91.302A Unspecified open wound, left foot, initial encounter (principal); G43.909 Migraine, unspecified, not intractable, without status migrainosus; I11.0 Hypertensive heart disease with heart failure; I50.9 Heart failure, unspecified; I25.2 Old myocardial infarction; J44.9 Chronic obstructive pulmonary disease, unspecified; M19.90 Unspecified osteoarthritis, unspecified site; G89.29 Other chronic pain; F41.9 Anxiety disorder, unspecified; F31.9 Bipolar disorder, unspecified; F20.9 Schizophrenia, unspecified; F17.200 Nicotine dependence, unspecified, uncomplicated; F12.90 Cannabis use, unspecified, uncomplicated; F15.90 Other stimulant use, unspecified, uncomplicated; F11.90 Opioid use, unspecified, uncomplicated; F19.90 Other psychoactive substance use, unspecified, uncomplicated; Z86.711 Personal history of pulmonary embolism; Z87.440 Personal history of urinary (tract) infections; Z86.718 Personal history of other venous thrombosis and embolism; Z98.890 Other specified postprocedural states; Z88.5 Allergy status to narcotic agent; Z88.0 Allergy status to penicillin; Z88.6 Allergy status to analgesic agent; Z88.8 Allergy status to other drugs, medicaments and biological substances; Z79.2 Long term (current) use of antibiotics; Z79.899 Other long term (current) drug therapy; X58.XXXA Exposure to other specified factors, initial encounter; Y93.89 Activity, other specified; Y92.89 Other specified places as the place of occurrence of the external cause; Y99.8 Other external cause status
CPT/HCPCS: 99284